=== PATIENT | male | born 1970 | race Caucasian/White ===

== ENCOUNTER 2023-06-15 08:30 | Outpatient (OUT) | payer OTHER, SELFPAY ==
[2023-06-15 09:05] LABS: Basophils Absolute Auto 0.1 10^3/uL (0.0-0.1); Eosinophils Absolute Auto 0.1 10^3/uL (0.0-0.7); Eosinophils Percent Auto 1.9 % (0.9-7.0); Hematocrit 42.2 % (42.0-54.0); Hemoglobin 14.2 g/dL (14.0-18.0); Immature Granulocytes Abs Auto 0.02 10^3/uL (0.00-0.03); Immature Granulocytes Pct Auto 0.4 % (0.0-0.5); Lymphocytes Absolute Auto 1.3 10^3/uL (1.2-3.8); Lymphocytes Percent Auto 25.6 % (20.5-60.0); Mean Corpuscular HGB Conc 33.6 g/dL (29.9-35.2); Mean Corpuscular Hemoglobin 28.5 pg (25.9-34.0); Mean Corpuscular Volume 84.7 fL (80.0-94.0); Mean Platelet Volume 8.9 fL (9.5-13.5); Monocytes Absolute Auto 0.5 10^3/uL (0.3-0.8); Monocytes Percent Auto 8.9 % (1.7-12.0); Neutrophils Absolute Auto 3.2 10^3/uL (1.4-6.5); Neutrophils Percent Auto 62.2 % (43.0-75.0); Platelet Count 252 10^3/uL (150-450); Red Blood Count 4.98 10^6/uL (4.70-6.10); Red Cell Distribution Width 12.4 % (11.0-15.0); White Blood Count 5.2 10^3/uL (4.0-11.0)
[2023-06-15 09:35] LABS: Alanine Aminotransferase 40 U/L (16-63); Albumin Level 3.8 g/dL (3.4-5.0); Alkaline Phosphatase 118 U/L (46-116); Anion Gap 15.3; Aspartate Amino Transferase 18 U/L (15-37); BUN Creatinine Ratio 9.3; Bilirubin Total 0.7 mg/dL (0.2-1.0); Calcium 8.7 mg/dL (8.5-10.1); Carbon Dioxide 26.8 mmol/L (21.0-32.0); Chloride 100 mmol/L (98-107); Chol HDL Ratio 5.4; Cholesterol 215 mg/dL (<=200); Estimated GFR (African America >60 (>=60); Estimated GFR (Non-African Ame 58 (>=60); Globulin 3.7 g/dL; Glucose 90 mg/dL (74-106); HDL Cholesterol 40 mg/dL (40-60); Potassium 4.1 mmol/L (3.5-5.1); Sodium 138 mmol/L (136-145); Total Protein 7.5 g/dL (6.4-8.2); Triglycerides 220 mg/dL (<=150)
--- OUTSIDE RECORDS SUMMARY | 2023-07-21 18:42 | XMS_ITS | CCD ---
Author Name Unknown Address [address] [place] [address] Organization [facility] Care Team Providers Care Senior Science Consultant Name Role Phone HOUSE, DR MURPHY Attending Unavailable HOUSE, DR MURPHY Consulting Unavailable HOUSE, DR MURPHY Primary Care Unavailable [place], DR MURPHY Admitting Unavailable Mendy Benitez Unavailable Problems Active Problems Problem Classification Problem Date Documented Da te Episodic/Chronic Other screening for suspected conditions (not mental disorders or infectious disease) (3 sources) Encounter for screening for lipoid disorders; Translations: [Encounter for screening for diseases of the blood and blood-forming organs and certain disorders involving the immune mechanism] Episodic Phlebitis; thrombophlebitis and thromboembolism (1 source) Personal history of other venous thrombosis and embolism Episodic Past or Other Problems Problem Classification Problem Date Documented Da te Episodic/Chronic Unclassified (1 source) Acute cough R05.1 Results Test Name Value Interpretation Reference Range Facil ity CBC AUTO DIFFon 05-23-2022 BASO # 0.0 103/ul Normal 0.0-0.1 [facility] Comment on above: Performed By: #### C BC #### [facility] [address] [place] [address] Dr. Shantelle Nicolas Basophils/100 WBC (Bld) 0.7 % Normal 0.2-2.0 [facility] Comment on above: Performed By: #### C BC #### [facility] [address] [place] [address] Dr. Shantelle Nicolas EO # 0.1 103/ul Normal 0.0-0.7 [facility] Comment on above: Performed By: #### C BC #### [facility] [address] [place] [address] Dr. Shantelle Nicolas Eosinophils/100 WBC (Bld) 3.3 % Normal 0.9-7.0 [facility] Comment on above: Performed By: #### C BC #### [facility] [address] [place] [address] Dr. Shantelle Nicolas Erythrocyte distribution wid th (RBC) [Ratio] 12.7 % Normal 11.0-15.0 [facility] Comment on above: Performed By: #### C BC #### [facility] [address] [place] [address] Dr. Shantelle Nicolas Hematocrit (Bld) [Volume fraction] 43.4 % Normal 4 2.0-54.0 [facility] Comment on above: Performed By: #### C BC #### [facility] [address] [place] [address] Dr. Shantelle Nicolas Hemoglobin (Bld) [Mass/Vol] 14.3 g/dL Normal 14.0-18. 0 [facility] Comment on above: Performed By: #### C BC #### [facility] [address] [place] [address] Dr. Shantelle Nicolas IG # 0.01 10e3/ul Normal 0.00-0.03 [facility] Comment on above: Performed By: #### C BC #### [facility] [address] [place] [address] Dr. Shantelle Nicolas IG % 0.2 % Normal 0.0-0.5 [facility] Comment on above: Performed By: #### C BC #### [facility] [address] [place] [address] Dr. Shantelle Nicolas LYMPH # 1.5 103/ul Normal 1.2-3.8 [facility] Comment on above: Performed By: #### C BC #### [facility] [address] [place] [address] Dr. Shantelle Nicolas Lymphocytes/100 WBC (Bld) 33.7 % Normal 20.5-60.0 [facility] Comment on above: Performed By: #### C BC #### [facility] [address] [place] [address] Dr. Shantelle Nicolas MANUAL DIFF REQ NO Normal [facility] Comment on above: Performed By: #### C BC #### [facility] [address] [place] [address] Dr. Shantelle Nicolas MCH (RBC) [Entitic mass] 28.0 pg Normal 25.9-34.0 [facility] Comment on above: Performed By: #### C BC #### [facility] [address] [place] [address] Dr. Shantelle Nicolas MCHC (RBC) [Mass/Vol] 32.9 g/dL Normal 29.9-35.2 [facility] Comment on above: Performed By: #### C BC #### [facility] [address] [place] [address] Dr. Shantelle Nicolas MCV (RBC) [Entitic vol] 85.1 fL Normal 80.0-94.0 [facility] Comment on above: Performed By: #### C BC #### [facility] [address] [place] [address] Dr. Shantelle Nicolas MONO # 0.5 103/ul Normal 0.3-0.8 [facility] Comment on above: Performed By: #### C BC #### [facility] [address] [place] [address] Dr. Shantelle Nicolas Monocytes/100 WBC (Bld) 10.9 % Normal 1.7-12.0 [facility] Comment on above: Performed By: #### C BC #### [facility] [address] [place] [address] Dr. Shantelle Nicolas NEUT # 2.2 103/ul Normal 1.4-6.5 [facility] Comment on above: Performed By: #### C BC #### [facility] [address] [place] [address] Dr. Shantelle Nicolas Neutrophils/100 WBC (Bld) 51.2 % Normal 43.0-75.0 [facility] Comment on above: Performed By: #### C BC #### [facility] [address] [place] [address] Dr. Shantelle Nicolas Platelet mean volume (Bld) [Entitic vol] 8.8 fL Critically low 9.5-13.5 [facility] Comment on above: Performed By: #### C BC #### [facility] [address] [place] [address] Dr. Shantelle Nicolas PLT 222 103/ul Normal 150-450 [facility] Comment on above: Performed By: #### C BC #### [facility] [address] [place] [address] Dr. Shantelle Nicolas RBC 5.10 106/ul Normal 4.70-6.10 [facility] Comment on above: Performed By: #### C BC #### [facility] [address] [place] [address] Dr. Shantelle Nicolas WBC 4.3 103/ul Normal 4.0-11.0 [facility] Comment on above: Performed By: #### C BC #### [facility] [address] [place] [address] Dr. Shantelle Nicolas LIPID PROFILEon 05-23-2022 CHOL-HDL RATIO NORM SEE BELOW Normal [facility] Comment on above: Result Comment: 3.3 - 4.4 LOW RISK 4.4 - 7.1 AVERAGE RISK 7.1 - 11.0 MODERATE RISK >11.0 HIGH RISK Performed By: #### L IPID, CMP #### [facility] [address] [place] [address] Dr. Shantelle Nicolas Cholesterol [Mass/Vol] 224 mg/dL Critically high <=200 [facility] Comment on above: Performed By: #### L IPID, CMP #### [facility] [address] [place] [address] Dr. Shantelle Nicolas Cholesterol in HDL [Mass/Vol] 42 mg/dL Normal 40-60 [facility] Comment on above: Performed By: #### L IPID, CMP #### [facility] [address] [place] [address] Dr. Shantelle Nicolas Cholesterol in LDL [Mass/Vol] 149.0 mg/dL Normal [facility] Comment on above: Performed By: #### L IPID, CMP #### [facility] [address] [address] [address] Shantelle Nicolas Cholesterol.total/Cholestero l in HDL [Mass ratio] 5.3 {ratio} Normal [facility] Comment on above: Performed By: #### L IPID, CMP #### [facility] [address] [address] [address] Shantelle Nicolas HDL NORMAL > or = 60 mg/dl - LO W CARDIOVASCULAR RISK <40 mg/dl - HIGH CARDIOVASCULAR RISK Normal [facility] Comment on above: Performed By: #### L IPID, CMP #### [facility] [address] [address] [address] Shantelle Nicolas LDL CALC NORMAL SEE BELOW Normal The [facility] Comment on above: Result Comment: <100 mg/dl OPTIMAL 100 - 129 mg/dl NEAR OR ABOVE OPTIMAL 130 - 159 mg/dl BORDERLINE HIGH 160 - 189 mg/dl HIGH >190 mg/dl VERY HIGH Performed By: #### L IPID, CMP #### [facility] [address] [place] [address] Dr. Shantelle Nicolas Triglyceride [Mass/Vol] 165 mg/dL Critically high <=150 [facility] Comment on above: Performed By: #### L IPID, CMP #### [facility] [address] [place] [address] Dr. Shantelle Nicolas VLDL CALC 33.0 mg/dL Normal [facility] Comment on above: Performed By: #### L IPID, CMP #### [facility] [address] [address] [address] Shantelle Nicolas PROF 14(COMP METB)on 022 Albumin [Mass/Vol] 4.2 g/dL Normal 3.4-5.0 [facility] Comment on above: Performed By: #### L IPID, CMP #### [facility] [address] [place] [address] Dr. Shantelle Nicolas Albumin/Globulin [Mass ratio] 1.2 {ratio} Normal [facility] Comment on above: Performed By: #### L IPID, CMP #### [facility] [address] [address] [address] Shantelle Nicolas ALP [Catalytic activity/Vol] 97 U/L Normal 46-116 [facility] Comment on above: Performed By: #### L IPID, CMP #### [facility] [address] [address] [address] Shantelle Nicolas ALT [Catalytic activity/Vol] 34 U/L Normal 16-63 [facility] Comment on above: Performed By: #### L IPID, CMP #### [facility] [address] [address] [address] Shantelle Nicolas Anion gap [Moles/Vol] 10.6 mmol/L Normal [facility] Comment on above: Performed By: #### L IPID, CMP #### [facility] [address] [address] [address] Shantelle Nicolas AST [Catalytic activity/Vol] 16 U/L Normal 15-37 [facility] Comment on above: Performed By: #### L IPID, CMP #### [facility] [address] [address] [address] Shantelle Nicolas Bilirubin [Mass/Vol] 0.9 mg/dL Normal 0.2-1.0 [facility] Comment on above: Performed By: #### L IPID, CMP #### [facility] [address] [address] [address] Shantelle Nicolas Calcium [Mass/Vol] 9.2 mg/dL Normal 8.5-10.1 [facility] Comment on above: Performed By: #### L IPID, CMP #### [facility] [address] [address] [address] Shantelle Nicolas Chloride [Moles/Vol] 102 mmol/L Normal 98-107 [facility] Comment on above: Performed By: #### L IPID, CMP #### [facility] [address] [address] [address] Shantelle Nicolas CO2 [Moles/Vol] 30.4 mmol/L Normal 21.0-32.0 [facility] Comment on above: Performed By: #### L IPID, CMP #### [facility] [address] [address] [address] Shantelle Nicolas Creatinine [Mass/Vol] 1.17 mg/dL Normal 0.70-1.30 [facility] Comment on above: Performed By: #### L IPID, CMP #### [facility] [address] [address] [address] Shantelle Nicolas EGFR-AF CENTRAL AFRICAN >60 Normal >=60 [facility] Comment on above: Performed By: #### L IPID, CMP #### [facility] [address] [address] [address] Shantelle Nicolas EGFR-NON AF CENTRAL AFRICAN >60 Normal >=60 [facility] Comment on above: Performed By: #### L IPID, CMP #### [facility] [address] [address] [address] Shantelle Nicolas Globulin (S) [Mass/Vol] 3.5 g/dL Normal [facility] Comment on above: Performed By: #### L IPID, CMP #### [facility] [address] [address] [address] Shantelle Nicolas Glucose [Mass/Vol] 93 mg/dL Normal 74-106 [facility] Comment on above: Performed By: #### L IPID, CMP #### [facility] [address] [address] [address] Shantelle Nicolas Potassium [Moles/Vol] 4.0 mmol/L Normal 3.5-5.1 [facility] Comment on above: Performed By: #### L IPID, CMP #### [facility] [address] [address] [address] Shantelle Nicolas Protein [Mass/Vol] 7.7 g/dL Normal 6.4-8.2 [facility] Comment on above: Performed By: #### L IPID, CMP #### [facility] [address] [address] [address] Shantelle Nicolas Sodium [Moles/Vol] 139 mmol/L Normal 136-145 [facility] Comment on above: Performed By: #### L IPID, CMP #### [facility] [address] [place], [place] [address] Dr. Shantelle Nicolas Urea nitrogen [Mass/Vol] 12.0 mg/dL Normal 7.0-18.0 [facility] Comment on above: Performed By: #### L IPID, CMP #### [facility] [address] [place], [place] [address] Dr. Shantelle Nicolas Urea nitrogen/Creatinine [Mass ratio] 10.3 mg/mg Normal [facility] Comment on above: Performed By: #### L IPID, CMP #### [facility] [address] [place], [place] [address] Dr. Shantelle Nicolas Vital Signs Date Time Vital Sign Value Performing Clinician Facility 06-11-2023 08:00-0500 Body height 175.26 cm Mendy Benitez Other [facility] Other 06-11-2023 08:00-0500 Body mass index (BMI) [Ratio] 31.01 kg/m2 Mendy Benitez Other [facility] Other 06-11-2023 08:00-0500 Body weight 95.26 kg Mendy Benitez Other [facility] Other 06-11-2023 08:00-0500 Diastolic blood pressure 74 mm[Hg] Mendy Benitez Other [facility] Other 06-11-2023 08:00-0500 Systolic blood pressure 112 mm[Hg] Mendy Benitez Other [facility] Other 03-06-2023 08:00-0400 Body height 175.26 cm Mendy Benitez Other [facility] Other 03-06-2023 08:00-0400 Body mass index (BMI) [Ratio] 31.16 kg/m2 Mendy Hutsondarren Other [facility] Other 03-06-2023 08:00-0400 Body weight 95.71 kg Mendy Hidalgozayra Other [facility] Other 03-06-2023 08:00-0400 Diastolic blood pressure 70 mm[Hg] Mendy Emmanuel Other [facility] Other 03-06-2023 08:00-0400 Systolic blood pressure 108 mm[Hg] Mendy Hutsondarren Other [facility] Other Encounters Encounter Date Encounter Type Care Provider Facility Start: 07-08-2023 (Virtual OD) On-G[place] nd Virtual Visit [facility] Mendy Benitez [facility] Start: 07-08-2023 End: 07-08-2023 ambulatory Mendy Emmanuel Other [facility] Other Start: 06-16-2023 End: 06-16-2023 ambulatory Mendy Hutsondarren Other [facility] Other Start: 06-16-2023 Telephone encounter Mendy Kraig her [facility] Start: 06-11-2023 End: 06-11-2023 ambulatory Mendy Emmanuel Other [facility] Other Start: 06-11-2023 Encounter for genera l adult medical examination without abnormal findings Mendy Benitez [facility] Start: 06-11-2023 Periodic preventive med est patient 40-64yrs Mendy Benitez [facility] Start: 03-06-2023 End: 03-06-2023 ambulatory Mendy Benitez Other [facility] Other Start: 03-06-2023 Office outpatient ne w 20 minutes Mendy Benitez [facility] Start: 05-28-2022 Encounter for genera l adult medical examination without abnormal findings DR KATHERINE EVLA [facility] Start: 05-23-2022 End: 05-24-[address] KATHERINE VELA Facility:[facility] Start: 05-23-2022 End: 05-24-2022 Encounter for general adult medical examination without abnormal findings DR KATHERINE VELA Facility:[facility] Procedures Date Procedure Procedure Detail Performing Clinician Start: 05-23-[address] REECE VELA Comment on above: Performed By: #### P SAD #### [facility] [address] [place] [address] Dr. Shantelle Nicolas Payers Date Payer Category Payer Unknown [id number] 1960 Unknown [id number] Unknown [id number] Social History Date Type Detail Facility Sex Assigned At [facility] Other Evaluation note 07-08-2023 Note Date & Type Note Facility 07-08-2023 Evaluation note Encounter Date Diagnosis Assessment Notes Jul, Acute cough (ICD-10 - R05.1) Discussed symptoms and pt to test for COVID and call with the results. Discussed diagnosis with patient. Discussed with patient that symptoms are most likely viral at this time. No ATB needed at this time. OTC Ibuprofen/Tylenol PRN fever or general discomfort. OTC sore throat sprays or throat lozenges PRN. Notify office should symptoms persist and not improve. Discussed warning s/s with patient. If patient experiences any warning s/s, patient is immediately to go to the ER. Patient verbalizes understanding and agrees to treatment plan. [facility] Other Evaluation note 06-11-2023 Note Date & Type Note Facility 06-11-2023 Evaluation note Encounter Date Diagnosis Assessment Notes Jun, Wellness examination (ICD-10 - Z00.00) Personalized health advice was given to the beneficiary including a written plan for screenings discussed and provided. Advanced care planning reviewed and/or information given as requested. Additional counseling was provided here today in regards to general topics regarding health education were discussed in detail. All preventative issues were discussed including remaining a nonsmoker, colorectal screening, the importance of proper sleep for brain health maintenance, maintaining a heart-healthy balanced diet, recognizing and addressing signs of anxiety and depression, maintaining positive relationships with family and friends. Jun, Screening for lipid disorders (ICD-10 - Z13.220) will call lab and diagnostic results and recommendations Jun, Screening for deficiency anemia (ICD-10 - Z13.0) Jun, Screening for metabolic disorder (ICD-10 - Z13.228) [facility] Other Evaluation note 03-06-2023 Note Date & Type Note Facility 03-06-2023 Evaluation note Encounter Date Diagnosis Assessment Notes Mar, History of blood clots (ICD-10 - Z86.718) right lower extremity Reports a history of blood clot due to traumatic injury of right leg. Denies any edema, calf pain. [facility] Other Evaluation note Note Date & Type Note Facility Evaluation note No Information [facility] Other History general Narrative - Reported Note Date & Type Note Facility History general Narrative - Reported Type Medical History Asthma Medical History DVT- 2018 Surgical History PE tubes [facility] Other Summary Purpose Family History No Family History Records Found Advance Directives No Advanced Directives Records Found Additional Source Comments (unrecognized sect ion and content) No Status Records Found INFORMATION SOURCE (unrecogn ized section and content) DATE CREATED AUTHOR 05/29/2022 [facility] REASON FOR VISIT (unrecogniz ed section and content) [facility] [phone] FOR RECORDS PERTAINING TO PATIENTS WHO ARE OR HAVE BEEN ENROLLED IN A CHEMICAL DEPENDENCY/SUBSTANCEABUSE PROGRAM, SOME INFORMATION MAY BE OMITTED. This clinical summary was aggregated from multiple sources. Caution should be exercised in using it in the provision of clinical care. This summary normalizes information from multiple sources, and as a consequence, information in this document may materially change the coding, format and clinical context of patient data. In addition, data may be omitted in some cases. CLINICAL DECISIONS SHOULD BE BASED ON THE PRIMARY CLINICAL RECORDS. [facility]. provides no warranty or guarantee of the accuracy or completeness of information in this document.
== END 2023-06-15 08:31 | disposition home or self-care (01) ==
PROVIDERS: PCP Nurse Practitioner Family; Visit Provider Nurse Practitioner Family
DX: Z00.00 Encounter for general adult medical examination without abnormal findings (principal); Z13.220 Encounter for screening for lipoid disorders; Z13.0 Encounter for screening for diseases of the blood and blood-forming organs and certain disorders involving the immune mechanism; Z13.228 Encounter for screening for other metabolic disorders
CPT/HCPCS: 36415; 80053; 80061; 85025

== ENCOUNTER 2023-10-23 09:19 | Outpatient (OUT) | payer OTHER, SELFPAY ==
--- OUTSIDE RECORDS SUMMARY | 2023-10-23 09:25 | XMS_ITS | CCD ---
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 Name Role Phone HOUSE, DR MURPHY Attending Unavailable HOUSE, DR MURPHY Consulting Unavailable HOUSE, DR MURPHY Primary Care Unavailable [place], DR MURPHY Admitting Unavailable Emmanuel Mendy Unavailable [phone] Problems Active Problems Problem Classification Problem Date [...] Problem Date Documented Da te Episodic/Chronic Unclassified (2 sources) Acute cough R05.1 Results Test Name Value Interpretation Reference Range Facil ity CBC AUTO DIFFon 05-23-2022 BASO # 0.0 103/ul Normal 0.0-0.1 [facility] [place] Comment on above: Performed By: #### C BC #### [facility] [address] [place] [address] Dr. Shantelle Nicolas Basophils/100 WBC (Bld) 0.7 % Normal 0.2-2.0 [facility] [place] Comment on above: Performed By: #### C BC #### [facility] [address] [address] [address] Shantelle Nicolas EO # 0.1 103/ul Normal 0.0-0.7 [facility] Comment on above: Performed By: #### C BC #### [facility] [address] [address] [address] Shantelle Nicolas Eosinophils/100 WBC (Bld) 3.3 % Normal 0.9-7.0 [facility] [place] Comment on above: Performed By: #### C BC #### [facility] [address] [place] [address] Dr. Shantelle Nicolas Erythrocyte distribution width (RBC) [Ratio] 12.7 % Normal 11.0-15.0 [facility] [place] Comment on above: Performed By: #### C BC #### [facility] [address] [place] [address] Dr. Shantelle Nicolas Hematocrit (Bld) [Volume fraction] 43.4 % Normal 42.0-54.0 [facility] [place] Comment on above: Performed By: #### C BC #### [facility] [address] [place] [address] Dr. Shantelle Nicolas Hemoglobin (Bld) [Mass/Vol] 14.3 g/dL Normal 14.0-18.0 [facility] [place] Comment on above: Performed By: #### C BC #### [facility] [address] [place] [address] Dr. Shantelle Nicolas IG # 0.01 10e3/ul Normal 0.00-0.03 [facility] [place] Comment on above: Performed By: #### C BC #### [facility] [address] [place] [address] Dr. Shantelle Nicolas IG % 0.2 % Normal 0.0-0.5 [facility] [place] Comment on above: Performed By: #### C BC #### [facility] [address] [place] [address] Dr. Shantelle Nicolas LYMPH # 1.5 103/ul Normal 1.2-3.8 [facility] [place] Comment on above: Performed By: #### C BC #### [facility] [address] [place] [address] Dr. Shantelle Nicolas Lymphocytes/100 WBC (Bld) 33.7 % Normal 20.5-60.0 [facility] [place] Comment on above: Performed By: #### C BC #### [facility] [address] [place] [address] Dr. Shantelle Nicolas MANUAL DIFF REQ NO Normal [facility] Comment on above: Performed By: #### C BC #### [facility] [address] [address] [address] Shantelle Nicolas MCH (RBC) [Entitic mass] 28.0 pg Normal 25.9-34.0 [facility] Comment on above: Performed By: #### C BC #### [facility] [address] [place] [address] Dr. Shantelle Nicolas MCHC (RBC) [Mass/Vol] 32.9 g/dL Normal 29.9-35.2 [facility] Comment on above: Performed By: #### C BC #### [facility] [address] [place] [address] Dr. Shantelle Nicolas MCV (RBC) [Entitic vol] 85.1 fL Normal 80.0-94.0 [facility] Comment on above: Performed By: #### C BC #### [facility] [address] [place] [address] Dr. Shantelle Nicolas MONO # 0.5 103/ul Normal 0.3-0.8 [facility] Comment on above: Performed By: #### C BC #### [facility] [address] [place] [address] Dr. Shantelle Nicolas Monocytes/100 WBC (Bld) 10.9 % Normal 1.7-12.0 [facility] [place] Comment on above: Performed By: #### C BC #### [facility] [address] [place] [address] Dr. Shantelle Nicolas NEUT # 2.2 103/ul Normal 1.4-6.5 [facility] Comment on above: Performed By: #### C BC #### [facility] [address] [place] [address] Dr. Shantelle Nicolas Neutrophils/100 WBC (Bld) 51.2 % Normal 43.0-75.0 [facility] Comment on above: Performed By: #### C BC #### [facility] [address] [place] [address] Dr. Shantelle Nicolas Platelet mean volume (Bld) [Entitic vol] 8.8 fL Critically low 9.5-13.5 [facility] Comment on above: Performed By: #### C BC #### [facility] [address] [address] [address] Shantelle Nicolas PLT 222 103/ul Normal 150-450 [facility] [place] Comment on above: Performed By: #### C BC #### [facility] [address] [address] [address] Shantelle Nicolas RBC 5.10 106/ul Normal 4.70-6.10 [facility] [place] Comment on above: Performed By: #### C BC #### [facility] [address] [address] [address] Shantelle Nicolas WBC 4.3 103/ul Normal 4.0-11.0 [facility] [place] Comment on above: Performed By: #### C BC #### [facility] [address] [address] [address] Shantelle Nicolas LIPID PROFILEon 05-23-2022 CHOL-HDL RATIO NORM SEE BELOW Normal [facility] Comment on above: Result Comment: 3.3 - 4.4 LOW RISK 4.4 - 7.1 AVERAGE RISK 7.1 - 11.0 MODERATE RISK >11.0 HIGH RISK Performed By: #### L IPID, CMP #### [facility] [address] [place] [address] Dr. Shantelle Nicolas Cholesterol [Mass/Vol] 224 mg/dL Critically high <=200 [facility] [place] Comment on above: Performed By: #### L IPID, CMP #### [facility] [address] [address] [address] Shantelle Nicolas Cholesterol in HDL [Mass/Vol] 42 mg/dL Normal 40-60 [facility] [place] Comment on above: Performed By: #### L IPID, CMP #### [facility] [address] [address] [address] Shantelle Nicolas Cholesterol in LDL [Mass/Vol] 149.0 mg/dL Normal [facility] [place] Comment on above: Performed By: #### L IPID, CMP #### [facility] [address] [place] [address] Dr. Shantelle Nicolas Cholesterol.total/C holesterol in HDL [Mass ratio] 5.3 {ratio} Normal [facility] [place] Comment on above: Performed By: #### L IPID, CMP #### [facility] [address] [address] [address] Shantelle Nicolas HDL NORMAL > or = 60 mg/dl - LO W CARDIOVASCULAR RISK <40 mg/dl - HIGH CARDIOVASCULAR RISK Normal [facility] [place] Comment on above: Performed By: #### L IPID, CMP #### [facility] [address] [address] [address] Shantelle Nicolas LDL CALC NORMAL SEE BELOW Normal [facility] Comment on above: Result Comment: <100 mg/dl OPTIMAL 100 - 129 mg/dl NEAR OR ABOVE OPTIMAL 130 - 159 mg/dl BORDERLINE HIGH 160 - 189 mg/dl HIGH >190 mg/dl VERY HIGH Performed By: #### L IPID, CMP #### [facility] [address] [address] [address] Shantelle Nicolas Triglyceride [Mass/Vol] 165 mg/dL Critically high <=150 [facility] [place] Comment on above: Performed By: #### L IPID, CMP #### [facility] [address] [address] [address] Shantelle Nicolas VLDL CALC 33.0 mg/dL Normal [facility] [place] Comment on above: Performed By: #### L IPID, CMP #### [facility] [address] [address] [address] Shantelle Nicolas PROF 14(COMP METB)on 05-23- 022 Albumin [Mass/Vol] 4.2 g/dL Normal 3.4-5.0 [facility] Comment on above: Performed By: #### L IPID, CMP #### [facility] [address] [address] [address] Shantelle Nicolas Albumin/Globulin [Mass ratio] 1.2 {ratio} Normal [facility] [place] Comment on above: Performed By: #### L IPID, CMP #### [facility] [address] [address] [address] Shantelle Nicolas ALP [Catalytic activity/Vol] 97 U/L Normal 46-116 [facility] [place] Comment on above: Performed By: #### L IPID, CMP #### [facility] [address] [address] [address] Shantelle Nicolas ALT [Catalytic activity/Vol] 34 U/L Normal 16-63 [facility] [place] Comment on above: Performed By: #### L IPID, CMP #### [facility] [address] [address] [address] Shantelle Nicolas Anion gap [Moles/Vol] 10.6 mmol/L Normal [facility] [place] Comment on above: Performed By: #### L IPID, CMP #### [facility] [address] [address] [address] Shantelle Nicolas AST [Catalytic activity/Vol] 16 U/L Normal 15-37 [facility] [place] Comment on above: Performed By: #### L IPID, CMP #### [facility] [address] [place] [address] Dr. Shantelle Nicolas Bilirubin [Mass/Vol] 0.9 mg/dL Normal 0.2-1.0 [facility] [place] Comment on above: Performed By: #### L IPID, CMP #### [facility] [address] [place] [address] Dr. Shantelle Nicolas Calcium [Mass/Vol] 9.2 mg/dL Normal 8.5-10.1 [facility] Comment on above: Performed By: #### L IPID, CMP #### [facility] [address] [place] [address] Dr. Shantelle Nicolas Chloride [Moles/Vol] 102 mmol/L Normal 98-107 [facility] Comment on above: Performed By: #### L IPID, CMP #### [facility] [address] [address] [address] Shantelle Nicolas CO2 [Moles/Vol] 30.4 mmol/L Normal 21.0-32.0 [facility] Comment on above: Performed By: #### L IPID, CMP #### [facility] [address] [address] [address] Shantelle Nicolas Creatinine [Mass/Vol] 1.17 mg/dL Normal 0.70-1.30 [facility] [place] Comment on above: Performed By: #### L IPID, CMP #### [facility] [address] [address] [address] Shantelle Nicolas EGFR-AF CYMRAES >60 Normal >=60 [facility] Comment on above: Performed By: #### L IPID, CMP #### [facility] [address] [address] [address] Shantelle Nicolas EGFR-NON AF CYMRAES >60 Normal >=60 [facility] [place] Comment on above: Performed By: #### L IPID, CMP #### [facility] [address] [address] [address] Shantelle Nicolas Globulin (S) [Mass/Vol] 3.5 g/dL Normal [facility] [place] Comment on above: Performed By: #### L IPID, CMP #### [facility] [address] [address] [address] Shantelle Nicolas Glucose [Mass/Vol] 93 mg/dL Normal 74-106 [facility] Comment on above: Performed By: #### L IPID, CMP #### [facility] [address] [address] [address] Shantelle Nicolas Potassium [Moles/Vol] 4.0 mmol/L Normal 3.5-5.1 [facility] [place] Comment on above: Performed By: #### L IPID, CMP #### [facility] [address] [address] [address] Shantelle Nicolas Protein [Mass/Vol] 7.7 g/dL Normal 6.4-8.2 [facility] Comment on above: Performed By: #### L IPID, CMP #### [facility] [address] [address] [address] Shantelle Nicolas Sodium [Moles/Vol] 139 mmol/L Normal 136-145 [facility] Comment on above: Performed By: #### L IPID, CMP #### [facility] [address] [address] [address] Shantelle Nicolas Urea nitrogen [Mass/Vol] 12.0 mg/dL Normal 7.0-18.0 [facility] [place] Comment on above: Performed By: #### L IPID, CMP #### [facility] [address] [address] [address] Shantelle Nicolas Urea nitrogen/Creatinine [Mass ratio] 10.3 mg/mg Normal [facility] Comment on above: Performed By: #### L IPID, CMP #### [facility] [address] [address] [address] Shanetlle Nicolas Vital Signs Date Time Vital Sign Value Performing Clinician Facility 06-11-2023 08:00-0500 Body height 175.26 cm Mendy Benitez Other [facility] Other 06-11-2023 08:00-0500 Body mass index (BMI) [Ratio] 31.01 kg/m2 Mendy Benitez Other [facility] Other 06-11-2023 08:00-0500 Body weight 95.26 kg Mendy Benitez Other [facility] Other 06-11-2023 08:00-0500 Diastolic blood pressure 74 mm[Hg] Mendy Benitez Other [facility] Other 06-11-2023 08:00-0500 Systolic blood pressure 112 mm[Hg] Mendy Benitez Other [facility] Other 03-06-2023 08:00-0400 Body height 175.26 cm Mendy Benitez Other [facility] Other 03-06-2023 08:00-0400 Body mass index (BMI) [Ratio] 31.16 kg/m2 Mendy Benitez Other [facility] Other 03-06-2023 08:00-0400 Body weight 95.71 kg Mendy Benitez Other [facility] Other 03-06-2023 08:00-0400 Diastolic blood pressure 70 mm[Hg] Mendy Emmanuel Other [facility] Other 03-06-2023 08:00-0400 Systolic blood pressure 108 mm[Hg] Mendy Emmanuel Other [facility] Other Encounters Encounter Date Encounter Type Care Provider Facility Start: 07-08-2023 (Virtual OD) On-[place] nd Virtual Visit [facility] Mendy Benitez [facility] Start: 07-08-2023 End: 07-08-2023 ambulatory Mendy Benitez Other [facility] Other Start: 06-16-2023 End: 06-16-2023 ambulatory Mendy Benitez Other [facility] Other Start: 06-16-2023 Telephone encounter Mendy Kraig modi [facility] Start: 06-11-2023 End: 06-11-2023 ambulatory Mendy Benitez Other [facility] Other Start: 06-11-2023 Encounter for genera l adult medical examination without abnormal findings Mendy Benitez [facility] Start: 06-11-2023 Periodic preventive med est patient 40-64yrs Mendy Benitez [facility] Start: 03-06-2023 End: 03-06-2023 ambulatory Mendy Benitez Other [facility] Other Start: 03-06-2023 Office outpatient ne w 20 minutes Mendy Benitez [facility] Start: 05-28-2022 Encounter for genera l adult medical examination without abnormal findings DR KATHERINE VELA [facility] Start: 05-23-2022 End: 05-24-[address] KATHERINE VELA Facility:[facility] Start: 05-23-2022 End: 05-24-2022 Encounter for general adult medical examination without abnormal findings DR KATHERINE VELA Facility:[facility] Procedures Date Procedure Procedure Detail Performing Clinician Start: 05-23-[address] REECE VELA Comment on above: Performed By: #### P SAD #### [facility] [address] [address] [address] Shantelle Nicolas Payers Date Payer Category Payer Unknown [id number] 1960 Unknown [id number] Unknown [id number] Social History Date Type Detail Facility Sex Assigned At [facility] Other Evaluation note 07-08-2023 Note Date & [...] verbalizes understanding and agrees to treatment plan. [facility] Other Evaluation note 07-08-2023 Note Date & [...] verbalizes understanding and agrees to treatment plan. Jul, Other The patient was seen per telephonic virtual visit through [email or web address] Platform and my location (provider) is in the office setting. The specifics of telephonic visit were discussed with patient. This call is considered a telephonic visit, which is to help assess current healthcare needs and to determine the appropriate care patient may require. This visit is a billable service through patient insurance [employer]. Patient is in agreement to have their insurance billed for this telephonic visit and consents to telephonic visit. The staff involved in visit was myself, Mendy Benitez DNP, [employer], [employer] CLAIM EXAMINER (provider). Time spent with patient for the telephonic visit was approximately 10 minutes. [facility] Other Evaluation note 06-11-2023 Note Date & [...] Screening for metabolic disorder (ICD-10 - Z13.228) [facility] Other Evaluation note 03-06-2023 Note Date & Type Note Facility 03-06-2023 Evaluation note Encounter Date Diagnosis Assessment Notes Mar, History of blood clots (ICD-10 - Z86.718) right lower extremity Reports a history of blood clot due to traumatic injury of right leg. Denies any edema, calf pain. [facility] Other Evaluation note Note Date & Type Note Facility Evaluation note No Information [employer] Other History general Narrative - Reported Note Date & Type Note Facility History general Narrative - Reported Type Medical History Asthma Medical History DVT- 2018 Surgical History PE tubes [facility] Other Summary Purpose Family History No Family History Records Found Advance Directives No Advanced Directives Records Found Additional Source Comments (unrecognized sect ion and content) No Status Records Found INFORMATION SOURCE (unrecogn ized section and content) DATE CREATED AUTHOR 05/29/2022 The Suzanna Bryan bonner REASON FOR VISIT (unrecogniz ed section and content) EstablishBiometric Screening lab resultsJuaquin, [facility] [phone], [facility]- [phone] FOR RECORDS PERTAINING TO PATIENTS WHO ARE [...] BE BASED ON THE PRIMARY CLINICAL RECORDS. [facility]. provides no warranty or guarantee of the accuracy or completeness of information in this document.
[2023-10-24 08:11] LABS: HCV Antibody Non Reactive (Non Reactive); Hep B Surface Ab Non Reactive (.)
== END 2023-10-23 09:20 | disposition home or self-care (01) ==
LOC: LAB 09:22
PROVIDERS: PCP Nurse Practitioner Family
DX: L43.8 Other lichen planus (principal); R20.8 Other disturbances of skin sensation
CPT/HCPCS: 36415; 86706; 86803

== ENCOUNTER 2024-05-19 08:01 | Outpatient (OUT) | payer OTHER, SELFPAY ==
--- OUTSIDE RECORDS SUMMARY | 2024-05-19 08:04 | XMS_ITS | CCD ---
Author Organization [facility] Care Team Providers Care Knockup Worker Name Role Phone HOUSE, DR MURPHY Attending Unavailable HOUSE, DR MURPHY Consulting Unavailable HOUSE, DR MURPHY Primary Care Unavailable [place], DR MURPHY Admitting Unavailable EmmanuelMendy Unavailable Problems Active Problems Problem Classification Problem Date Documented Da te Episodic/Chronic Asthma (1 source) Asthma; Translations: [Unspecified asthma, uncomplicated] 05-16-2024 Chronic Other screening for suspected conditions (not mental disorders or infectious disease) (5 sources) Encounter for screening for lipoid disorders; [...] 05-23-2022 BASO # 0.0 103/ul Normal 0.0-0.1 [facility] Comment on above: Performed By: #### C BC #### [facility] [address] [place] [address] Dr. Shantelle Nicolas Basophils/100 WBC (Bld) 0.7 % Normal 0.2-2.0 [facility] Comment on above: Performed By: #### C BC #### [facility] [address] [address] [address] Shantelle Nicolas EO # 0.1 103/ul Normal 0.0-0.7 [facility] Comment on above: Performed By: #### C BC #### [facility] [address] [place] [address] Dr. Shantelle Nicolas Eosinophils/100 WBC (Bld) 3.3 % Normal 0.9-7.0 [facility] Comment on above: Performed By: #### C BC #### [facility] [address] [place] [address] Dr. Shantelle Nicolas Erythrocyte distribution width (RBC) [Ratio] 12.7 % Normal 11.0-15.0 [facility] Comment on above: Performed By: #### C BC #### [facility] [address] [place] [address] Dr. Shantelle Nicolas Hematocrit (Bld) [Volume fraction] 43.4 % Normal 42.0-54.0 [facility] Comment on above: Performed By: #### C BC #### [facility] [address] [place] [address] Dr. Shantelle Nicolas Hemoglobin (Bld) [Mass/Vol] 14.3 g/dL Normal 14.0-18.0 [facility] Comment on above: Performed By: #### C BC #### [facility] [address] [place] [address] Dr. Shantelle Nicolas IG # 0.01 10e3/ul Normal 0.00-0.03 [facility] Comment on above: Performed By: #### C BC #### [facility] [address] [place] [address] Dr. Shantelle Nicolas IG % 0.2 % Normal 0.0-0.5 [facility] Comment on above: Performed By: #### C BC #### [facility] [address] [place] [address] Dr. Shantelle Nicolas LYMPH # 1.5 103/ul Normal 1.2-3.8 [facility] Comment on above: Performed By: #### C BC #### [facility] [address] [place] [address] Dr. Shantelle Nicolas Lymphocytes/100 WBC (Bld) 33.7 % Normal 20.5-60.0 [facility] Comment on above: Performed By: #### C BC #### [facility] [address] [place] [address] Dr. Shantelle Nicolas MANUAL DIFF REQ NO Normal [facility] Comment on above: Performed By: #### C BC #### [facility] [address] [address] [address] Shantelle Nicolas MCH (RBC) [Entitic mass] 28.0 pg Normal 25.9-34.0 [facility] Comment on above: Performed By: #### C BC #### [facility] [address] [address] [address] Shantelle Nicolas MCHC (RBC) [Mass/Vol] 32.9 g/dL Normal 29.9-35.2 [facility] Comment on above: Performed By: #### C BC #### [facility] [address] [place] [address] Dr. Shantelle Nicolas MCV (RBC) [Entitic vol] 85.1 fL Normal 80.0-94.0 [facility] Comment on above: Performed By: #### C BC #### [facility] [address] [place] [address] Dr. Shantelle Nicolas MONO # 0.5 103/ul Normal 0.3-0.8 [facility] Comment on above: Performed By: #### C BC #### [facility] [address] [place] [address] Dr. Shantelle Nicolas Monocytes/100 WBC (Bld) 10.9 % Normal 1.7-12.0 [facility] Comment on above: Performed By: #### C BC #### [facility] [address] [place] [address] Dr. Shantelle Nicolas NEUT # 2.2 103/ul Normal 1.4-6.5 [facility] Comment on above: Performed By: #### C BC #### [facility] [address] [place] [address] Dr. Shantelle Nicolas Neutrophils/100 WBC (Bld) 51.2 % Normal 43.0-75.0 [facility] Comment on above: Performed By: #### C BC #### [facility] [address] [place] [address] Dr. Shantelle Nicolas Platelet mean volume (Bld) [Entitic vol] 8.8 fL Critically low 9.5-13.5 [facility] Comment on above: Performed By: #### C BC #### [facility] [address] [address] [address] Shantelle Nicolas PLT 222 103/ul Normal 150-450 [facility] Comment on above: Performed By: #### C BC #### [facility] [address] [place] [address] Dr. Shantelle Nicolas RBC 5.10 106/ul Normal 4.70-6.10 [facility] Comment on above: Performed By: #### C BC #### [facility] [address] [place] [address] Dr. Shantelle Nicolas WBC 4.3 103/ul Normal 4.0-11.0 [facility] Comment on above: Performed By: #### C BC #### [facility] [address] [place] [address] Dr. Shantelle Nicolas LIPID PROFILEon 05-23-2022 CHOL-HDL RATIO NORM SEE BELOW Normal [facility] Comment on above: Result Comment: 3.3 - 4.4 LOW RISK 4.4 - 7.1 AVERAGE RISK 7.1 - 11.0 MODERATE RISK >11.0 HIGH RISK Performed By: #### L IPID, CMP #### [facility] [address] [place] [address] Dr. Shantelle Nicolas Cholesterol [Mass/Vol] 224 mg/dL Critically high <=200 [facility] Comment on above: Performed By: #### L IPID, CMP #### [facility] [address] [place] [address] Dr. Shantelle Nicolas Cholesterol in HDL [Mass/Vol] 42 mg/dL Normal 40-60 [facility] Comment on above: Performed By: #### L IPID, CMP #### [facility] [address] [place] [address] Dr. Shantelle Nicolas Cholesterol in LDL [Mass/Vol] 149.0 mg/dL Normal [facility] Comment on above: Performed By: #### L IPID, CMP #### [facility] [address] [place] [address] Dr. Shantelle Nicolas Cholesterol.total/C holesterol in HDL [Mass ratio] 5.3 {ratio} Normal [facility] Comment on above: Performed By: #### L IPID, CMP #### [facility] [address] [address] [address] Shantelle Nicolas HDL NORMAL > or = 60 mg/dl - LO W CARDIOVASCULAR RISK <40 mg/dl - HIGH CARDIOVASCULAR RISK Normal [facility] Comment on above: Performed By: #### L IPID, CMP #### [facility] [address] [address] [address] Shantelle Nicolas LDL CALC NORMAL SEE BELOW Normal [facility] Comment on above: Result Comment: <100 mg/dl OPTIMAL 100 - 129 mg/dl NEAR OR ABOVE OPTIMAL 130 - 159 mg/dl BORDERLINE HIGH 160 - 189 mg/dl HIGH >190 mg/dl VERY HIGH Performed By: #### L IPID, CMP #### [facility] [address] [address] [address] Shantelle Nicolas Triglyceride [Mass/Vol] 165 mg/dL Critically high <=150 [facility] Comment on above: Performed By: #### L IPID, CMP #### [facility] [address] [address] [address] Shantelle Nicolas VLDL CALC 33.0 mg/dL Normal [facility] Comment on above: Performed By: #### L IPID, CMP #### [facility] [address] [address] [address] Shantelle Nicolas PROF 14(COMP METB)on 022 Albumin [Mass/Vol] 4.2 g/dL Normal 3.4-5.0 [facility] Comment on above: Performed By: #### L IPID, CMP #### [facility] [address] [address] [address] Shantelle Nicolas Albumin/Globulin [Mass ratio] 1.2 {ratio} Normal [facility] Comment on above: Performed By: #### L IPID, CMP #### [facility] [address] [address] [address] Shantelle Nicolas ALP [Catalytic activity/Vol] 97 U/L Normal 46-116 [facility] Comment on above: Performed By: #### L IPID, CMP #### [facility] [address] [address] [address] Shantelle Nicolas ALT [Catalytic activity/Vol] 34 U/L Normal 16-63 [facility] Comment on above: Performed By: #### L IPID, CMP #### [facility] [address] [address] [address] Shantelle Nicolas Anion gap [Moles/Vol] 10.6 mmol/L Normal [facility] Comment on above: Performed By: #### L IPID, CMP #### [facility] [address] [address] [address] Shantelle Nicolas AST [Catalytic activity/Vol] 16 U/L Normal 15-37 [facility] Comment on above: Performed By: #### L IPID, CMP #### [facility] [address] [address] [address] Shantelle Nicolas Bilirubin [Mass/Vol] 0.9 mg/dL Normal 0.2-1.0 [facility] Comment on above: Performed By: #### L IPID, CMP #### [facility] [address] [address] [address] Shantelle Nicolas Calcium [Mass/Vol] 9.2 mg/dL Normal 8.5-10.1 [facility] Comment on above: Performed By: #### L IPID, CMP #### [facility] [address] [address] [address] Shantelle Nicolas Chloride [Moles/Vol] 102 mmol/L Normal 98-107 [facility] Comment on above: Performed By: #### L IPID, CMP #### [facility] [address] [address] [address] Shantelle Nicolas CO2 [Moles/Vol] 30.4 mmol/L Normal 21.0-32.0 [facility] Comment on above: Performed By: #### L IPID, CMP #### [facility] [address] [address] [address] Shantelle Nicolas Creatinine [Mass/Vol] 1.17 mg/dL Normal 0.70-1.30 [facility] Comment on above: Performed By: #### L IPID, CMP #### [facility] [address] [place] [address] Dr. Shantelle Nicolas EGFR-AF ITALIAN >60 Normal >=60 [facility] Comment on above: Performed By: #### L IPID, CMP #### [facility] [address] [address] [address] Shantelle Nicolas EGFR-NON AF ITALIAN >60 Normal >=60 [facility] Comment on above: Performed By: #### L IPID, CMP #### [facility] [address] [address] [address] Shantelle Nicolsa Globulin (S) [Mass/Vol] 3.5 g/dL Normal [facility] Comment on above: Performed By: #### L IPID, CMP #### [facility] [address] [place] [address] Dr. Shantelle Nicolas Glucose [Mass/Vol] 93 mg/dL Normal 74-106 [facility] Comment on above: Performed By: #### L IPID, CMP #### [facility] [address] [place] [address] Dr. Shantelle Nicolas Potassium [Moles/Vol] 4.0 mmol/L Normal 3.5-5.1 [facility] Comment on above: Performed By: #### L IPID, CMP #### [facility] [address] [place] [address] Dr. Shantelle Nicolas Protein [Mass/Vol] 7.7 g/dL Normal 6.4-8.[address] [facility] Comment on above: Performed By: #### L IPID, CMP #### [facility] [address] [address] [address] Shantelle Nicolas Sodium [Moles/Vol] 139 mmol/L Normal 136-145 [facility] Comment on above: Performed By: #### L IPID, CMP #### [facility] [address] [address] [address] Shantelle Nicolas Urea nitrogen [Mass/Vol] 12.0 mg/dL Normal 7.0-18.0 [facility] Comment on above: Performed By: #### L IPID, CMP #### [facility] [address] [address] [address] Shantelle Nicolas Urea nitrogen/Creatinine [Mass ratio] 10.3 mg/mg Normal [facility] Comment on above: Performed By: #### L IPID, CMP #### [facility] [address] [address] [address] Shantelle Nicolas Vital Signs Date Time Vital Sign Value Performing Clinician Facility 05-16-2024 08:32-0400 Body height 175.26 cm [facility] 05-16-2024 08:32-0400 Body mass index (BMI) [Ratio] 31.8 kg/m2 [facility] 05-16-2024 08:32-0400 Body temperature 97.4 [degF] [facility] 05-16-2024 08:32-0400 Body weight 97.63 kg [facility] 05-16-2024 08:32-0400 Diastolic blood pressure 88 mm[Hg] [facility] 05-16-2024 08:32-0400 Heart rate 76 /min [facility] 05-16-2024 08:32-0400 SaO2% (BldA) [Mass fraction] 96 % [facility] 05-16-2024 08:32-0400 Systolic blood pressure 118 mm[Hg] [facility] 06-11-2023 08:00-0500 Body height 175.26 cm Mendy Benitez Other [facility] Other 06-11-2023 08:00-0500 Body mass index (BMI) [Ratio] 31.01 kg/m2 Mendy Benitez Other [facility] Other 06-11-2023 08:00-0500 Body weight 95.26 kg Mendy Benitez Other [facility] Other 06-11-2023 08:00-0500 Diastolic blood pressure 74 mm[Hg] Mendy Emmanuel Other [facility] Other 06-11-2023 08:00-0500 Systolic blood pressure 112 mm[Hg] Mendy Hidalgozayra Other [facility] Other 03-06-2023 08:00-0400 Body height 175.26 cm Mendy Hutsonmykelyoanzayra Other [facility] Other 03-06-2023 08:00-0400 Body mass index (BMI) [Ratio] 31.16 kg/m2 Mendy Hutsondarren Other [facility] Other 03-06-2023 08:00-0400 Body weight 95.71 kg Mendy Hutsondarren Other [facility] Other 03-06-2023 08:00-0400 Diastolic blood pressure 70 mm[Hg] Mendy Emmanuel Other [facility] Other 03-06-2023 08:00-0400 Systolic blood pressure 108 mm[Hg] Mendy Emmanuel Other [facility] Other Encounters Encounter Date Encounter Type Care Provider Facility Start: 05-16-2024 Patient encounter status [facility] Start: 05-16-2024 End: 05-16-2024 ambulatory [facility] Work Phone: Start: 05-16-2024 End: 05-16-2024 Encounter for general adult medical examination without abnormal findings [facility] Start: 05-16-2024 End: 05-16-2024 Patient encounter procedure [facility] Physician [facility] Work Phone: Start: 07-08-2023 (Virtual OD) On-Gina nd Virtual Visit [facility] Mendy Benitez [facility] Start: 07-08-2023 End: 07-08-2023 ambulatory Mendy Benitez Other [facility] Other Start: 06-16-2023 End: 06-16-2023 ambulatory Mendy Benitez Other [facility] Other Start: 06-16-2023 Telephone encounter Mendy modi [facility] Start: 06-11-2023 End: 06-11-2023 ambulatory Mendy Benitez Other [facility] Other Start: 06-11-2023 Encounter for genera l adult medical examination without abnormal findings Mendy Hutsondarren [facility] Start: 06-11-2023 Periodic preventive med est patient 40-64yrs Mendy Hutsondarren [facility] Start: 03-06-2023 End: 03-06-2023 ambulatory Mendy Benitez Other [facility] Other Start: 03-06-2023 Office outpatient ne w 20 minutes Mendy Hutsondarren [facility] Start: 05-28-2022 Encounter for genera l adult medical examination without abnormal findings DR KATHERINE VELA [facility] Start: 05-23-2022 End: 05-24-[address] KATHERINE EVLA Facility:[facility] Start: 05-23-2022 End: 05-24-2022 Encounter for general adult medical examination without abnormal findings DR KATHERINE VELA Facility:[facility] Procedures Date Procedure Procedure Detail Performing Clinician Start: 05-23-[address] REECE VELA Comment on above: Performed By: #### P SAD #### [facility] [address] [place] [address] Dr. Shantelle Nicolas Plan of Treatment Date Care Activity Detail Author Comprehensive metabo lic 2000 panel - Serum or Plasma [facility] enter [facility] Immunizations Immunization Date Immunization Notes Care Provider Krystyna rothman 08-03-2018 tetanus toxoid, redu sridevi diphtheria toxoid, and acellular pertussis vaccine, adsorbed [facility] Payers Date Payer Category Payer Unknown [id number] 1960 Unknown [id number] Self-pay Self Pay [id number] Unknown [id number] Unknown [employer] [id number] Social History Date Type Detail Facility Sex Assigned At [facility] Other Start: 05-16-2024 Tobacco smoking stat [facility] Never smoked tobacco (finding) [facility] Start: 1970 Sex Assigned At Male [facility] Evaluation note 07-08-2023 Note Date & Type [...] verbalizes understanding and agrees to treatment plan. [facility] Other Evaluation note 07-08-2023 Note Date & [...] was seen per telephonic virtual visit through [employer] and my location (provider) is in the office setting. The specifics of telephonic visit were discussed with patient. This call is considered a telephonic visit, which is to help assess current healthcare needs and to determine the appropriate care patient may require. This visit is a billable service through patient insurance [employer]. Patient is in agreement to have their insurance billed for this telephonic visit and consents to telephonic visit. The staff involved in visit was myself, Mendy Benitez DNP, LOAN REPRESENTATIVE, AIR TRAFFIC CONTROL MANAGER (provider). Time spent with patient for the telephonic visit was approximately 10 minutes. [facility] Other Evaluation note 06-11-2023 Note Date & [...] Screening for metabolic disorder (ICD-10 - Z13.228) [facility] Other Evaluation note 03-06-2023 Note Date & Type Note Facility 03-06-2023 Evaluation note Encounter Date Diagnosis Assessment Notes Mar, History of blood clots (ICD-10 - Z86.718) right lower extremity Reports a history of blood clot due to traumatic injury of right leg. Denies any edema, calf pain. [facility] Other Evaluation note Note Date & Type Note Facility Evaluation note No Information [facility] Other Evaluation note Note Date & Type Note Facility Evaluation note Diagnosis Onset Date Screening for prostate cancer acute Wellness examination [facility] Work Phone: History general Narrative - Reported Note Date & Type Note Facility History general Narrative - Reported Type Medical History Asthma Medical History DVT- 2018 Surgical History PE tubes [facility] Other Summary Purpose Family History Relationship Condition Age at Onset Recorded Date/T stu father Heart disease Unknown Advance Directives Advance Directive Response Recorded Date/ Time Advance Directives No August 03, 2018 5:40am Chief Complaint and Reason for Visit Chief Complaint biometric screening Reason for Visit Screening for prosta te cancer Wellness examination Additional Source Comments (unrecognized sect ion and content) No Status Records Found INFORMATION SOURCE (unrecogn ized section and content) DATE CREATED AUTHOR 05/29/2022 [facility] REASON FOR VISIT (unrecogniz ed section and content) EstablishBiometric Screening lab resultsCough, Congestion- [phone], Congestion- [phone] Care Teams (unrecognized sec tion and content) Team Status: Active Member Role Status Dates Mendy Benitez APRN NP-Manuela Primary Care Provider Active Lynn Mccormick MD Specialist Active Team Status: Inactive Member Role Status Dates CARTER Rosas Primary Care Provider, Attending Provider Active Start: May 16, 2024 End: May 16, 2024 Goals (unrecognized section and content) Goals may be documented in a n alternate section FOR RECORDS PERTAINING TO PATIENTS WHO ARE [...] BE BASED ON THE PRIMARY CLINICAL RECORDS. [facility] [facility]. provides no warranty or guarantee of the accuracy or completeness of information in this document.
[2024-05-19 08:32] LABS: Basophils Percent Auto 0.9 % (0.2-2.0); Eosinophils Absolute Auto 0.1 10^3/uL (0.0-0.7); Hematocrit 44.2 % (42.0-54.0); Hemoglobin 14.8 g/dL (14.0-18.0); Immature Granulocytes Abs Auto 0.01 10^3/uL (0.00-0.03); Immature Granulocytes Pct Auto 0.2 % (0.0-0.5); Lymphocytes Absolute Auto 1.4 10^3/uL (1.2-3.8); Lymphocytes Percent Auto 29.7 % (20.5-60.0); Mean Corpuscular HGB Conc 33.5 g/dL (29.9-35.2); Mean Corpuscular Hemoglobin 28.4 pg (25.9-34.0); Mean Corpuscular Volume 84.7 fL (80.0-94.0); Mean Platelet Volume 8.9 fL (9.5-13.5); Monocytes Absolute Auto 0.6 10^3/uL (0.3-0.8); Monocytes Percent Auto 11.9 % (1.7-12.0); Neutrophils Absolute Auto 2.6 10^3/uL (1.4-6.5); Neutrophils Percent Auto 55.3 % (43.0-75.0); Platelet Count 248 10^3/uL (150-450); Red Blood Count 5.22 10^6/uL (4.70-6.10); Red Cell Distribution Width 12.4 % (11.0-15.0); White Blood Count 4.6 10^3/uL (4.0-11.0)
[2024-05-19 09:52] LABS: Alanine Aminotransferase 44 U/L (16-63); Albumin Globulin Ratio 1.1; Albumin Level 3.8 g/dL (3.4-5.0); Alkaline Phosphatase 104 U/L (46-116); Aspartate Amino Transferase 19 U/L (15-37); BUN Creatinine Ratio 8.6; Bilirubin Total 0.9 mg/dL (0.2-1.0); Calcium 9.6 mg/dL (8.5-10.1); Carbon Dioxide 27.5 mmol/L (21.0-32.0); Chloride 103 mmol/L (98-107); Chol HDL Ratio 5.2; Cholesterol 236 mg/dL (<=200); Estimated GFR (African America 58 (>=60 mL/min/1.73m^2); Estimated GFR (Non-African Ame 48 (>=60 mL/min/1.73m^2); Globulin 3.6 g/dL; Glucose 106 mg/dL (74-106); HDL Cholesterol 45 mg/dL (40-60); Potassium 4.5 mmol/L (3.5-5.1); Sodium 140 mmol/L (136-145); Total Protein 7.4 g/dL (6.4-8.2); Triglycerides 151 mg/dL (<=150); VLDL CHOLESTEROL 30.2 mg/dL
[2024-05-19 10:10] LABS: Prostate Specific Antigen Scrn 0.73 ng/mL (<=4.00)
== END 2024-05-19 08:02 | disposition home or self-care (01) ==
LOC: LAB 08:02
PROVIDERS: PCP Nurse Practitioner Family; Visit Provider Nurse Practitioner Family
DX: Z00.00 Encounter for general adult medical examination without abnormal findings (principal); Z12.5 Encounter for screening for malignant neoplasm of prostate
CPT/HCPCS: 36415; 80053; 80061; 85025; G0103

== ENCOUNTER 2025-05-22 11:20 | Outpatient (OUT) | payer OTHER, SELFPAY ==
--- OUTSIDE RECORDS SUMMARY | 2025-05-22 11:25 | XMS_ITS | CCD ---
Author Organization [facility] Care Team Providers Care Astronomy Teacher Name Role Phone HOUSE, DR MURPHY Attending Unavailable HOUSE, DR MURPHY Consulting Unavailable HOUSE, DR MURPHY Primary Care Unavailable HOUSE, DR MURPHY Admitting Unavailable Mendy Benitez Unavailable Mendy Benitez APRN Primary Care Provider Mendy Benitez APRN Attending Provider [phone] Medications Current Medications Medication Drug Class(es) Dates Sig (Normalized) Sig (Original) atorvastatin 10 mg oral tablet (3 sources) HMG-CoA Reductase Inhibitor Start: 05-24-2024 End: 05-17-2025 take 1 tablet by mouth once daily in the evening Atorvastatin 10 mg tablet Active 10 MG PO Every evening May 17, 2025 8:49am Complies with drug therapy fluticasone propionate 0.05 mg/actuat metered dose nasal spray (1 source) Corticosteroid Start: 07-28-2024 take 1 spray(s) nasal route twice daily Fluticasone Propionate (Flonase Allergy Relief) 50 mcg/actuation spray,suspension Active 1 SPRAY INTRANASAL Twice daily July 28, 2024 1:00am administer into each nostril Complies with drug therapy Completed/Discontinued Medications Medication Drug Class(es) Dates Sig (Normalized) Sig (Original) amoxicillin 875 mg / clavulanate 125 mg oral tablet (1 source) Penicillin-class Antibacterial Start: End: 5 take 1 tablet by mouth twice daily Amoxicillin-Pot Clavulanate 875-125 mg tablet Discontinued 1 TAB PO Twice daily 22 05July 28, 2024 1:00am May 17, 2025 8:34am methylPREDNISolone 4 mg oral tablet (1 source) Corticosteroid Start: 4 End: 5 take 1 tablet by mouth once Methylprednisolone (Medrol (Benjamin)) 4 mg tablets,dose pack Discontinued 0 PO per package directions July 28, 2024 1:00am May 17, 2025 8:39am PO PER PKG DIR valACYclovir 1000 mg oral tablet (2 sources) Herpesvirus Nucleoside Analog DNA Polymerase Inhibitor, Herpes Simplex Virus Nucleoside Analog DNA Polymerase Inhibitor, Herpes Zoster Virus Nucleoside Analog DNA Polymerase Inhibitor Start: End: Valacyclovir 1 gram tablet Discontinued 2000 MG PO Every 12 hours 4 1 September 29, 2024 4:17pm May 17, 2025 8:39am Problems Active Problems Problem Classification Problem Date Documented Da te Episodic/Chronic Asthma (3 sources) Asthma; Translations: [Unspecified asthma, uncomplicated] 05-16-2024 Chronic Disorders of lipid metabolism (2 sources) Hyperlipidemia; Translations: [Hyperlipidemia, unspecified] 05-24-2024 Chronic Other nutritional; endocrine; and metabolic disorders (2 sources) Body mass index 30+ - obesity; Translations: [Body mass index (BMI) 31.0-31.9, adult] 05-16-2024 Chronic Other screening for suspected conditions (not mental disorders or infectious disease) (7 sources) Encounter for screening for lipoid disorders; Translations: [Encounter for screening for diseases of the blood and blood-forming organs and certain disorders involving the immune mechanism] Episodic Other upper respiratory infections (1 source) Maxillary sinusitis; Translations: [Chronic maxillary sinusitis] 05-17-2025 Chronic Otitis media and related conditions (1 source) Dysfunction of eustachian tube; Translations: [Unspecified Eustachian tube disorder, unspecified ear] 05-17-2025 Episodic Phlebitis; thrombophlebitis and thromboembolism (1 source) Personal history of other venous thrombosis and embolism Episodic Viral infection (1 source) Herpes labialis; Translations: [Herpesviral vesicular dermatitis] 09-20-2024 Episodic Past or Other Problems Problem Classification Problem Date Documented Da te Episodic/Chronic Unclassified (2 sources) Acute cough R05.1 Results Test Name Value Interpretation Reference Range Facil ity CBC AUTO DIFFon 05-23-2022 BASO # 0.0 103/ul Normal 0.0-0.1 [facility] Comment on above: Performed By: #### C #### [facility] [address] [address] [address] Shantelle Nicolas Basophils/100 WBC (Bld) 0.7 % Normal 0.2-2.0 [facility] Comment on above: Performed By: #### C BC #### [facility] [address] [address] [address] Shantelle Nicolas EO # 0.1 103/ul Normal 0.0-0.7 [facility] Comment on above: Performed By: #### C BC #### [facility] [address] [address] [address] Shantelle Nicolas Eosinophils/100 WBC (Bld) 3.3 % Normal 0.9-7.0 [facility] Comment on above: Performed By: #### C BC #### [facility] [address] [place] [address] Dr. Shantelle Nicolas Erythrocyte distribution width (RBC) [Ratio] 12.7 % Normal 11.0-15.0 [facility] Comment on above: Performed By: #### C BC #### [facility] [address] [place] [address] Dr. Shantelle Nicolas Hematocrit (Bld) [Volume fraction] 43.4 % Normal 42.0-54.0 [facility] Comment on above: Performed By: #### C BC #### [facility] [address] [place] [address] Dr. Shantelle Nicolas Hemoglobin (Bld) [Mass/Vol] 14.3 g/dL Normal 14.0-18.0 [facility] Comment on above: Performed By: #### C BC #### [facility] [address] [place] [address] Dr. Shantelle Nicolas IG # 0.01 10e3/ul Normal 0.00-0.03 [facility] Comment on above: Performed By: #### C BC #### [facility] [address] [place] [address] Dr. Shantelle Nicolas IG % 0.2 % Normal 0.0-0.5 [facility] Comment on above: Performed By: #### C BC #### [facility] [address] [place] [address] Dr. Shantelle Nicolas LYMPH # 1.5 103/ul Normal 1.2-3.8 [facility] Comment on above: Performed By: #### C BC #### [facility] [address] [place] [address] Dr. Shantelle Nicolas Lymphocytes/100 WBC (Bld) 33.7 % Normal 20.5-60.0 [facility] Comment on above: Performed By: #### C BC #### [facility] [address] [place] [address] Dr. Shantelle Nicolas MANUAL DIFF REQ NO Normal [facility] Comment on above: Performed By: #### C BC #### [facility] [address] [place] [address] Dr. Shantelle Nicolas MCH (RBC) [Entitic mass] 28.0 pg Normal 25.9-34.0 [facility] Comment on above: Performed By: #### C BC #### [facility] [address] [place] [address] Dr. Shantelle Nicolas MCHC (RBC) [Mass/Vol] 32.9 g/dL Normal 29.9-35.2 [facility] Comment on above: Performed By: #### C BC #### [facility] [address] [place] [address] Dr. Shantelle Nicolas MCV (RBC) [Entitic vol] 85.1 fL Normal 80.0-94.0 [facility] Comment on above: Performed By: #### C BC #### [facility] [address] [place] [address] Dr. Shantelle Nicolas MONO # 0.5 103/ul Normal 0.3-0.8 [facility] Comment on above: Performed By: #### C BC #### [facility] [address] [place] [address] Dr. Shantelle Nicolas Monocytes/100 WBC (Bld) 10.9 % Normal 1.7-12.0 [facility] Comment on above: Performed By: #### C BC #### [facility] [address] [place] [address] Dr. Shantelle Nicolas NEUT # 2.2 103/ul Normal 1.4-6.5 [facility] Comment on above: Performed By: #### C BC #### [facility] [address] [place] [address] Dr. Shantelle Nicolas Neutrophils/100 WBC (Bld) 51.2 % Normal 43.0-75.0 [facility] Comment on above: Performed By: #### C BC #### [facility] [address] [place] [address] Dr. Shantelle Nicolas Platelet mean volume (Bld) [Entitic vol] 8.8 fL Critically low 9.5-13.5 [facility] Comment on above: Performed By: #### C BC #### [facility] [address] [place] [address] Dr. Shantelle Nicolas PLT 222 103/ul Normal 150-450 [facility] Comment on above: Performed By: #### C BC #### [facility] [address] [place] [address] Dr. Shantelle Nicolas RBC 5.10 106/ul Normal 4.70-6.10 [facility] Comment on above: Performed By: #### C BC #### [facility] [address] [place] [address] Dr. Shantelle Nicolas WBC 4.3 103/ul Normal 4.0-11.0 [facility] Comment on above: Performed By: #### C BC #### [facility] [address] [place] [address] Dr. Shantelle Nicolas LIPID PROFILEon 05-23-2022 CHOL-HDL RATIO NORM SEE BELOW Normal [facility] Comment on above: Result Comment: 3.3 - 4.4 LOW RISK 4.4 - 7.1 AVERAGE RISK 7.1 - 11.0 MODERATE RISK >11.0 HIGH RISK Performed By: #### L IPID, CMP #### [facility] [address] [place] [address] Dr. Shantelle Nicolas Cholesterol [Mass/Vol] 224 mg/dL Critically high <=200 [facility] Comment on above: Performed By: #### L IPID, CMP #### [facility] [address] [address] [address] Shantelle Nicolas Cholesterol in HDL [Mass/Vol] 42 mg/dL Normal 40-60 [facility] Comment on above: Performed By: #### L IPID, CMP #### [facility] [address] [address] [address] Shantelle Nicolas Cholesterol in LDL [Mass/Vol] 149.0 mg/dL Normal [facility] Comment on above: Performed By: #### L IPID, CMP #### [facility] [address] [address] [address] Shantelle Nicolas Cholesterol.total/C holesterol in HDL [Mass ratio] 5.3 {ratio} Normal [facility] Comment on above: Performed By: #### L IPID, CMP #### [facility] [address] [place] [address] Dr. Shantelle Nicolas HDL NORMAL > or = 60 mg/dl - LO W CARDIOVASCULAR RISK <40 mg/dl - HIGH CARDIOVASCULAR RISK Normal [facility] Comment on above: Performed By: #### L IPID, CMP #### [facility] [address] [address] [address] Shantelle Nicolas LDL CALC NORMAL SEE BELOW Normal [facility] Comment on above: Result Comment: <100 mg/dl OPTIMAL 100 - 129 mg/dl NEAR OR ABOVE OPTIMAL 130 - 159 mg/dl BORDERLINE HIGH 160 - 189 mg/dl HIGH >190 mg/dl VERY HIGH Performed By: #### L IPID, CMP #### [facility] [address] [address] [address] Shantelle Nicolas Triglyceride [Mass/Vol] 165 mg/dL Critically high <=150 [facility] Comment on above: Performed By: #### L IPID, CMP #### [facility] [address] [address] [address] Shantelle Nicolas VLDL CALC 33.0 mg/dL Normal [facility] Comment on above: Performed By: #### L IPID, CMP #### [facility] [address] [address] [address] Shantelle Nicolas PROF 14(COMP METB)on 022 Albumin [Mass/Vol] 4.2 g/dL Normal 3.4-5.0 [facility] Comment on above: Performed By: #### L IPID, CMP #### [facility] [address] [address] [address] Shantelle Nicolas Albumin/Globulin [Mass ratio] 1.2 {ratio} Normal [facility] Comment on above: Performed By: #### L IPID, CMP #### [facility] [address] [address] [address] Shantelle Nicolas ALP [Catalytic activity/Vol] 97 U/L Normal 46-116 [facility] Comment on above: Performed By: #### L IPID, CMP #### [facility] [address] [address] [address] Shantelle Nicolas ALT [Catalytic activity/Vol] 34 U/L Normal 16-63 [facility] Comment on above: Performed By: #### L IPID, CMP #### [facility] [address] [address] [address] Shantelle Nicolas Anion gap [Moles/Vol] 10.6 mmol/L Normal [facility] Comment on above: Performed By: #### L IPID, CMP #### [facility] [address] [address] [address] Shantelle Nicolas AST [Catalytic activity/Vol] 16 U/L Normal 15-37 [facility] Comment on above: Performed By: #### L IPID, CMP #### [facility] [address] [address] [address] Shantelle Nicolas Bilirubin [Mass/Vol] 0.9 mg/dL Normal 0.2-1.0 [facility] Comment on above: Performed By: #### L IPID, CMP #### [facility] [address] [address] [address] Shantelle Nicolas Calcium [Mass/Vol] 9.2 mg/dL Normal 8.5-10.1 [facility] Comment on above: Performed By: #### L IPID, CMP #### [facility] [address] [address] [address] Shantelle Nicolas Chloride [Moles/Vol] 102 mmol/L Normal 98-107 [facility] Comment on above: Performed By: #### L IPID, CMP #### [facility] [address] [place] [address] Dr. Shantelle Nicolas CO2 [Moles/Vol] 30.4 mmol/L Normal 21.0-32.0 [facility] Comment on above: Performed By: #### L IPID, CMP #### [facility] [address] [place] [address] Dr. Shantelle Nicolas Creatinine [Mass/Vol] 1.17 mg/dL Normal 0.70-1.30 [facility] Comment on above: Performed By: #### L IPID, CMP #### [facility] [address] [place] [address] Dr. Shantelle Nicolas EGFR-AF RWANDAN >60 Normal >=60 [facility] Comment on above: Performed By: #### L IPID, CMP #### [facility] [address] [place] [address] Dr. Shantelle Nicolas EGFR-NON AF RWANDAN >60 Normal >=60 [facility] Comment on above: Performed By: #### L IPID, CMP #### [facility] [address] [place] [address] Dr. Shantelle Nicolas Globulin (S) [Mass/Vol] 3.5 g/dL Normal [facility] Comment on above: Performed By: #### L IPID, CMP #### [facility] [address] [place] [address] Dr. Shantelle Nicolas Glucose [Mass/Vol] 93 mg/dL Normal 74-106 [facility] Comment on above: Performed By: #### L IPID, CMP #### [facility] [address] [place] [address] Dr. Shantelle Nicolas Potassium [Moles/Vol] 4.0 mmol/L Normal 3.5-5.1 [facility] Comment on above: Performed By: #### L IPID, CMP #### [facility] [address] [address] [address] Shantelle Nicolas Protein [Mass/Vol] 7.7 g/dL Normal 6.4-8.2 [facility] Comment on above: Performed By: #### L IPID, CMP #### [facility] [address] [address] [address] Shantelle Nicolas Sodium [Moles/Vol] 139 mmol/L Normal 136-145 [facility] Comment on above: Performed By: #### L IPID, CMP #### [facility] [address] [address] [address] Shantelle Nicolas Urea nitrogen [Mass/Vol] 12.0 mg/dL Normal 7.0-18.0 [facility] Comment on above: Performed By: #### L IPID, CMP #### [facility] [address] [address] [address] Shantelle Nicolas Urea nitrogen/Creatinine [Mass ratio] 10.3 mg/mg Normal [facility] Comment on above: Performed By: #### L IPID, CMP #### [facility] [address] [address] [address] Shantelle Nicolas Vital Signs Date Time Vital Sign Value Performing Clinician Facility 05-17-2025 08:36-0400 Body height 175.26 cm Mendy Benitez APRN Work Phone: [facility] 05-17-2025 08:36-0400 Body mass index (BMI) [Ratio] 31.3 kg/m2 Mendy Benitez APRN Work Phone: [facility] 05-17-2025 08:36-0400 Body temperature 97.6 [degF] Mendy Benitez APRN Work Phone: [facility] 05-17-2025 08:36-0400 Body weight 96.16 kg Mendy Benitez APRN Work Phone: [facility] 05-17-2025 08:36-0400 Diastolic blood pressure 70 mm[Hg] Mendy Benitez APRN Work Phone: [facility] 05-17-2025 08:36-0400 Heart rate 66 /min Mendy Emmanuel RASCHEL KNITTING MACHINE OPERATOR Work Phone: [facility] 05-17-2025 08:36-0400 SaO2% (BldA) [Mass fraction] 98 % Mendy Emmanuel RASCHEL KNITTING MACHINE OPERATOR Work Phone: [facility] 05-17-2025 08:36-0400 Systolic blood pressure 118 mm[Hg] Mendy Emmanuel RASCHEL KNITTING MACHINE OPERATOR Work Phone: [facility] 05-16-2024 08:32-0400 Body height 175.26 cm [facility] 05-16-2024 08:32-0400 Body mass index (BMI) [Ratio] 31.8 kg/m2 [facility] 05-16-2024 08:32-0400 Body temperature 97.4 [degF] [facility] 05-16-2024 08:32-0400 Body weight 97.63 kg [facility] 05-16-2024 08:32-0400 Diastolic blood pressure 88 mm[Hg] [facility] 05-16-2024 08:32-0400 Heart rate 76 /min [facility] 05-16-2024 08:32-0400 SaO2% (BldA) [Mass fraction] 96 % [facility] 05-16-2024 08:32-0400 Systolic blood pressure 118 mm[Hg] [facility] 06-11-2023 08:00-0500 Body height 175.26 cm Mendy Benitez Other [employer] [facility] [employer] Other 06-11-2023 08:00-0500 Body mass index (BMI) [Ratio] 31.01 kg/m2 Mendy Benitez Other [employer] Other 06-11-2023 08:00-0500 Body weight 95.26 kg Mendy Benitez Other [employer] Other 06-11-2023 08:00-0500 Diastolic blood pressure 74 mm[Hg] Mendy Emmanuel Other [employer] Other 06-11-2023 08:00-0500 Systolic blood pressure 112 mm[Hg] Mendy Emmanuel Other [employer] Other 03-06-2023 08:00-0400 Body height 175.26 cm Mendy Emmanuel Other [employer] Other 03-06-2023 08:00-0400 Body mass index (BMI) [Ratio] 31.16 kg/m2 Mendy Emmanuel Other [employer] Other 03-06-2023 08:00-0400 Body weight 95.71 kg Mendy Emmanuel Other [employer] Other 03-06-2023 08:00-0400 Diastolic blood pressure 70 mm[Hg] Mendy Emmanuel Other [employer] Other 03-06-2023 08:00-0400 Systolic blood pressure 108 mm[Hg] Mendy Benitez Other [employer] Other Encounters Encounter Date Encounter Type Care Provider Facility Start: 05-17-2025 End: 05-17-2025 ambulatory Mendy Benitez APRN Work Phone: [facility] Work Phone: Start: 05-17-2025 End: 05-17-2025 Patient encounter procedure Mendy Benitez APRN [facility] Work Phone: Start: 05-17-2025 End: 05-17-2025 Patient encounter status Mendy Hutsondarren RASCHEL KNITTING MACHINE OPERATOR REVENUE AGENT [facility] Start: 05-16-2024 Patient encounter status [facility] Start: 05-16-2024 End: 05-16-2024 ambulatory [facility] Work Phone: Start: 05-16-2024 End: 05-16-2024 Encounter for general adult medical examination without abnormal findings [facility] Start: 05-16-2024 End: 05-16-2024 Patient encounter procedure [facility] Work Phone: Start: 07-08-2023 (Virtual OD) On-Gina nd Virtual Visit [facility] Mendy Benitez [facility] Start: 07-08-2023 End: 07-08-2023 ambulatory Mendy Benitez Other [employer] Other Start: 06-16-2023 End: 06-16-2023 ambulatory Mendy Benitez Other [employer] Other Start: 06-16-2023 Telephone encounter Mendy Kraig modi [facility] Start: 06-11-2023 End: 06-11-2023 ambulatory Mendy Benitez Other [employer] Other Start: 06-11-2023 Encounter for genera l adult medical examination without abnormal findings Mendy Benitez [facility] Start: 06-11-2023 Periodic preventive med est patient 40-64yrs Mendy Benitez [facility] Start: 03-06-2023 End: 03-06-2023 ambulatory Mendy Benitez Other [employer] Other Start: 03-06-2023 Office outpatient ne w 20 minutes Mendy Benitez [facility] Start: 10-26-2022 Encounter for genera l adult medical examination without abnormal findings DR KATHERINE VELA [facility] Start: 05-23-2022 End: 05-24-[address] KATHERINE VELA Facility:[facility] Start: 05-23-2022 End: 05-24-2022 Encounter for general adult medical examination without abnormal findings DR KATHERINE VELA Facility:[facility] Procedures Date Procedure Procedure Detail Performing Clinician Start: 05-23-[address] REECE VELA Comment on above: Performed By: #### P SAD #### [facility] [address] [address] [address] Shantelle Nicolas Plan of Treatment Date Care Activity Detail Author Comprehensive metabo lic 1999 panel - Serum or Plasma [facility] enter Comprehensive metabo lic 1999 panel - Serum or Plasma [facility] enter [facility] Immunizations Immunization Date Immunization Notes Care Provider Fa cility 08-03-2018 tetanus toxoid, redu sridevi diphtheria toxoid, and acellular pertussis vaccine, adsorbed [facility] Payers Date Payer Category Payer Unknown [id number] 1960 Unknown [id number] Self-pay Self Pay [id number] Unknown [id number] Unknown [employer] [id number] Social History Date Type Detail Facility Sex Assigned At [facility] [facility] Other Start: 05-16-2024 Tobacco smoking stat [facility] Never smoked tobacco (finding) [facility] Start: 1970 Sex Assigned At Male F [facility] Sex Male (finding) [facility] Evaluation note 07-08-2023 Note Date & Type [...] verbalizes understanding and agrees to treatment plan. [facility] Other Evaluation note 07-08-2023 Note Date & [...] was seen per telephonic virtual visit through [employer] and my location (provider) is in the office setting. The specifics of telephonic visit were discussed with patient. This call is considered a telephonic visit, which is to help assess current healthcare needs and to determine the appropriate care patient may require. This visit is a billable service through patient insurance Locally. Patient is in agreement to have their insurance billed for this telephonic visit and consents to telephonic visit. The staff involved in visit was myself, Mendy Benitez DNP, RASCHEL KNITTING MACHINE OPERATOR, REVENUE AGENT (provider). Time spent with patient for the telephonic visit was approximately 10 minutes. [facility] Other Evaluation note 06-11-2023 Note Date & [...] Screening for metabolic disorder (ICD-10 - Z13.228) [facility] Other Evaluation note 03-06-2023 Note Date & Type Note Facility 03-06-2023 Evaluation note Encounter Date Diagnosis Assessment Notes Mar, History of blood clots (ICD-10 - Z86.718) right lower extremity Reports a history of blood clot due to traumatic injury of right leg. Denies any edema, calf pain. [facility] Other Evaluation note Note Date & Type Note Facility Evaluation note No Information [facility] Other Evaluation note Note Date & Type Note Facility Evaluation note Diagnosis Onset Date Screening for prostate cancer acute Wellness examination acute [facility] Work Phone: Evaluation note Note Date & Type Note Facility Evaluation note Diagnosis Onset Date Resolution Asthma acute May 17, 2025 8:28am BMI 31.0-31.9,adult acute Octob er 2024 8:28am Hyperlipidemia acute May 172024 8:28am Screening for prostate cancer acute May 17 8:28am Wellness examination acute Octo peggy 2024 8:28am [facility] Work Phone: History general Narrative - Reported Note Date & Type Note Facility History general Narrative - Reported Type Medical History Asthma Medical History DVT- 2018 Surgical History PE tubes [facility] Other Reason for referral (narrative) Note Date & Type Note Facility Reason for referral (narrative) No reason for referral information available [facility] Work Phone: Summary Purpose Family History Relationship Condition Age at Onset Recorded Date/T stu father Heart disease Unknown Advance Directives Advance Directive Response Recorded Date/ Time Advance Directives No August 03, 2018 5:40am Chief Complaint and Reason for Visit Chief Complaint biometric screening Reason for Visit Screening for prosta te cancer Wellness examination Chief Complaint Admit Date Wellness May 17, 2025 8 :28am Reason for Visit Admit Date Asthma May 17, 2025 8 :28am BMI 31.0-31.9,adult May 17, 2025 8 :28am Hyperlipidemia May 17, 2025 8 :28am Screening for prostate cancer May 172024 8:28am Wellness examination May 17, 2025 8:28am Additional Source Comments (unrecognized sect ion and content) No Status Records Found INFORMATION SOURCE (unrecogn ized section and content) DATE CREATED AUTHOR 05/29/2022 [facility] REASON FOR VISIT (unrecogniz ed section and content) EstablishBiometric Screening lab resultsCosauk [facility], Congestion- [phone], Congestion [phone] Care Teams (unrecognized sec tion and content) Team Status: Active Member Role Status Dates Mendy Benitez APRN QUALITY SUPERVISOR-C Primary Care Provider Active Lynn Mccormick MD Specialist Active Team Status: Inactive Member Role Status Dates Mendy Benitez APRN NP-Manuela Primary Care Provider, Attending Provider Active Start: May 16, 2024 End: May 16, 2024 Team Status: Inactive Member Role Status Dates Mendy Benitez APRN NP-Manuela Primary Care Provider Active Start: May End: May 17, 2025 CARTER Rosas Attending Provider Active Start: May 17, 2025 End: May 17, 2025 Goals (unrecognized section and content) Goals may [...] BE BASED ON THE PRIMARY CLINICAL RECORDS. [facility]. provides no warranty or guarantee of the accuracy or completeness of information in this document.
[2025-05-22 12:07] LABS: Alanine Aminotransferase 44 U/L (16-63); Albumin Globulin Ratio 1.1; Albumin Level 4.0 g/dL (3.4-5.0); Alkaline Phosphatase 103 U/L (46-116); Anion Gap 13.5; Aspartate Amino Transferase 16 U/L (15-37); Blood Urea Nitrogen 12.0 mg/dL (7.0-18.0); Calcium 9.2 mg/dL (8.5-10.1); Carbon Dioxide 26.5 mmol/L (21.0-32.0); Chloride 103 mmol/L (98-107); Cholesterol 166 mg/dL (<=200); Estimated GFR (African America >60 (>=60 mL/min/1.73m^2); Estimated GFR (Non-African Ame >60 (>=60 mL/min/1.73m^2); Globulin 3.8 g/dL; Glucose 93 mg/dL (74-106); HDL Cholesterol 44 mg/dL (40-60); Potassium 4.0 mmol/L (3.5-5.1); Sodium 139 mmol/L (136-145); Total Protein 7.8 g/dL (6.4-8.2); Triglycerides 183 mg/dL (<=150); VLDL CHOLESTEROL 36.6 mg/dL
[2025-05-22 12:10] LABS: Hematocrit 43.0 % (42.0-54.0); Hemoglobin 14.5 g/dL (14.0-18.0); Immature Granulocytes Abs Auto 0.01 10^3/uL (0.00-0.03); Immature Granulocytes Pct Auto 0.2 % (0.0-0.5); Lymphocytes Absolute Auto 1.7 10^3/uL (1.2-3.8); Mean Corpuscular HGB Conc 33.7 g/dL (29.9-35.2); Mean Corpuscular Hemoglobin 28.3 pg (25.9-34.0); Mean Corpuscular Volume 84.0 fL (80.0-94.0); Platelet Count 176 10^3/uL (150-450); Red Blood Count 5.12 10^6/uL (4.70-6.10); White Blood Count 5.1 10^3/uL (4.0-11.0)
== END 2025-05-22 11:21 | disposition home or self-care (01) ==
LOC: LAB 11:22
PROVIDERS: PCP Nurse Practitioner Family; Visit Provider Nurse Practitioner Family
DX: Z00.00 Encounter for general adult medical examination without abnormal findings (principal); E78.5 Hyperlipidemia, unspecified; Z12.5 Encounter for screening for malignant neoplasm of prostate
CPT/HCPCS: 36415; 80053; 80061; 85025; G0103

== ENCOUNTER 2025-08-02 11:13 | Outpatient (OUT) | payer OTHER, SELFPAY ==
--- OUTSIDE RECORDS SUMMARY | 2025-08-02 06:09 | XMS_ITS | Continuity of Care Document ---
Author Organization [facility] Address [address] [place] [address] Phone Care Team Providers Care Apparel Manufacture Instructor Name Role Phone Mendy Benitez APRN Primary Care Provider Mendy Benitez APRN Attending Provider Care Teams Patient Care Team Team Status: Active Member Role/Relationship Status Dates Mendy Benitez APRN SPIRAL SPRING WINDER-C Primary Care Provider Active ELISE WupecialistActiveMendy Benitez APRN SPIRAL [place] [place]ER-CPrimary Care ProviderActive Visit Care Team Team Status: Inactive Member Role/Relationship Status Dates Mendy Benitez APRN SPIRAL [employer]-C Primary Care Provider Active Start: May End: May 17, 2025Mendy Benitez APRN SPIRAL [place]ING [place]ER-CAttending ProviderActive Start: May 17, 2025 End: May 17, 2025 Patient Care Team Team Status: Active Member Role/Relationship Status Dates Mendy Benitez APRN SPIRAL [employer]ER-C Primary Care Provider Active Start: May Mendy Benitez APRN SPIRAL [employer]ING [employer]ER-CAttending ProviderActiveStart: May 22, 2025 Patient Care Team Team Status: Inactive Member Role/Relationship Status Dates Mendy Benitez APRN SPIRAL [employer]-C Primary Care Provider Active Start: August 022024 End: August 02, 2025Mendy Benitez APRN SPIR[employer]ING [employer]-CAttending ProviderActive Start: August 02, 2025 End: August 02, 2025 Chief Complaint and Reason for Visit Chief Complaint Admit Date Wellness May 17, 2025 8 :28am Back Pain (4 days) August 02, 2025 10:19am Reason for Visit Admit Date Asthma May 17, 2025 8 :28am BMI 31.0-31.9,adult May 17, 2025 8 :28am Hyperlipidemia May 17, 2025 8 :28am Screening for prostate cancer May 172024 8:28am Wellness examination May 17, 2025 8:28am Thoracic back pain August 02, 2025 10:19am Allergies, Adverse Reactions, Alerts Allergen Type Severity Reaction Last Updated Verified Status No Known Allergies Allergy Unknown August 02, 2025 10:24amYesActive Social History Smoking Status Status Start Date End Date Date of Observa tion Never smoked tobacco (finding) May 16, 2024 8:36am Observation Status Observation Response Date of Response Legal Sex Male (finding) [facility] Family History Relationship Condition Age at Onset Recorded Date/T stu father Heart disease Unknown Problems Active Problems Problem Diagnosis/Recorded Date Onset Date Stat Screening for prostate cancer May 16, 2024 7:52a m Unknown Active Cold sore September 20, 2024 8:50am Unknown A ctive Wellness examination May 16, 2024 7:47am Unknown Active Hyperlipidemia May 24, 2024 6:55am Unknown Active BMI 31.0-31.9,adult May 16, 2024 8:21am Unknown Active Thoracic back pain August 02, 2025 10:48am Unknown Active Asthma May 16, 2024 7:31am Unknown Ac tive Inactive/Resolved Problems Problem Diagnosis/Recorded Date Onset Date Stat Eustachian tube dysfunction July 28, 2024 10:31a m Unknown Resolved Maxillary sinusitis July 28, 2024 10:16am Unknow n Resolved Medications Medication Status Dose Units Route Directions Qty Days Refills S tart Date Stop Date End Date Reason(s) Instructions Adherence Atorvastatin 10 mg tablet Discontinued 10 MG PO E very evening 90 1October 2023 11:00pmJuly 2024 7:42amHyperlipidemia Hyperlipidemia, unspecifiedValacyclovir 1 gram fmstnuBbturnkpolng7530KLQSQzrrv 12 ffhpk903Xnfhoqmx 2024 12:00amFebruary 2024 3:17pmHerpes labialis Herpesviral vesicular dermatitisValacyclovir 1 gram mfdyaqSpwibkudutyi5467XHGV Every 12 ucdfb857Vlbyjtey 2024 3:17pmOctober 2024 7:39amHerpes labialis Herpesviral vesicular dermatitisAtorvastatin 10 mg xpoefzScovsbtazrzj58TOSFQcbci wtyudqp676Vpqu 2024 7:42amOctober 2024 7:49amHyperlipidemia Hyperlipidemia, unspecifiedValacyclovir 1 gram sgtdilTgnpgbiwbual2261EFQCVjhyr 12 wcxcc190Hqfnrdml 2024 12:00amDecember 2024 10:28amHerpes labialis Herpesviral vesicular dermatitisFluticasone Propionate (Flonase Allergy Relief) 50 mcg/actuation spray,vkbdmoqbieOruprysmexwc0TTQNGKNSQRKBAQTWbnuc oofhh86340 July 28, 2024 12:00amDecember 2024 10:28amMaxillary sinusitis Chronic maxillary sinusitisadminister into each nostrilAmoxicillin-Pot Clavulanate 875-125 mg yerqhuWwqernvyrsmk4MKTYGGezet ybgot04644Yomtyxhj2023 12:00amOctober 2024 7:34amMaxillary sinusitis Chronic maxillary sinusitisMethylprednisolone (Medrol (Benjamin)) 4 mg tablets,dose ybmqRpfcjmbqrhqv1EXyyh package lmmxnluxnw894Bwvnpihx 26th, 2024 12:00amOctober 2024 7:39amMaxillary sinusitis Chronic maxillary sinusitisPO PER PKG DIRAtorvastatin 10 mg wdkdgdInjlbv87SYMH Every jmazcuq438Rvtdlyi 2024 7:49amHyperlipidemia Hyperlipidemia, unspecifiedComplies with drug therapyMethylprednisolone (Medrol (Benjamin)) 4 mg tablets,dose akqpMgjtsl8PDrgk package yiiobxegfv343Rlnzzhsl 2024 12:00amThoracic back pain Pain in thoracic spinePO PER PKG DIRComplies with drug therapy Immunizations Immunization Event Date Not Given Reason Dose Number Office Professional Lot Number Reason(s) Given Vaccine Information Statement (VIS) Detail Administration Location Tetanus, Diphtheria, Pertussis (Tdap) [id number] Relevant Diagnostic Tests and/or Laboratory Data Laboratory Results Test Collection Date/Time Result Date/Time Result Interpretation Reference Range Result Comment Performing Site Cholesterol/HDL Ratio May 22, 2025 10:34am May 042024 10:34am 3.8 3.3 - 4.4 LOW RISK4.4 - 7.1 AVERAGE RISK7.1 - 11.0 MODERATE RISK>11.0 HIGH RISK Anion GapOct2024 10:34amO2024 10:34am13.5Basophils # (Auto)May 22, 2025 10:34amOct2024 10:34am0.0 10 3/uL0.0-0.1 Prostate Specific Antigen ScreenMay 22, 2025 10:34amOct2024 10:34am0.77 ng/mL<=4.00Cholesterol LevelOct2024 10:34amOct2024 10:99lx159 mg/dL<=200Albumin/Globulin RatioMay 22, 2025 10:34am May 22, 2025 10:34am1.1Basophils (%) (Auto)May 22, 2025 10:34am May 22, 2025 10:34am0.4 %0.2-2.0HDL CholesterolMay 22, 2025 10:34am May 22, 2025 10:34am44 mg/dL40-60> or =60 mg/dl - LOW CARDIOVASCULAR RISK<40 mg/dl - HIGH CARDIOVASCULAR RISKAlbuminMay 22, 2025 10:34amO2024 10:34am4.0 g/dL3.4-5.0Eosinophils # (Auto)May 22, 2025 10:34am May 22, 2025 10:34am0.2 10 3/uL0.0-0.7LDL Cholesterol, CalculatedMay 22, 2025 10:34amO2024 10:34am86.0 mg/dL<100 mg/dl MRNOHUP403-909 mg/dl NEAR OR ABOVE KSTMYIU725-048 mg/dl BORDERLINE RQQH749-699 mg/dl HIGH>190 mg/dl VERY HIGHAlkaline PhosphataseMay 22, 2025 10:34amOct2024 10:37bs214 U/G39-292Imagukssitr (%) (Auto)May 22, 2025 10:34amOctober 2024 10:34am3.4 %0.9-7.0Triglycerides LevelOctober 2024 10:34am May 22, 2025 10:12nh157 mg/dLAbove high normal<=150Alanine Aminotransferase (ALT/SGPT)May 22, 2025 10:34amOct2024 10:34am 44 U/F42-42TltorolcxfPmzolqt 20th, 2025 10:34amOct2024 10:34am43.0 % 42.0-54.0VLDL CholesterolOct2024 10:34amOct2024 10:34am 36.6 mg/dLAspartate Amino Transf (AST/SGOT)May 22, 2025 10:34amOct2024 10:34am16 U/M05-25CgtdnwrzxsFbmssge 2024 10:34amOctober 2024 10:34am14.5 g/dL14.0-18.0BUN/Creatinine RatioOctober 2024 10:34am May 22, 2025 10:34am11.3Immature Granulocyte # (Auto)May 22, 2025 10:34amOct2024 10:34am0.01 10 3/uL0.00-0.03Blood Urea NitrogenOctober 2024 10:34amOctober 2024 10:34am12.0 mg/dL7.0-18.0Immature Granulocyte % (Auto)May 22, 2025 10:34amOctober 2024 10:34am0.2 % 0.0-0.5Calcium LevelOctober 2024 10:34amOctober 2024 10:34am9.2 mg/dL8.5-10.1Lymphocytes # (Auto)May 22, 2025 10:34amOctober 2024 10:34am1.7 10 3/uL1.2-3.8Chloride LevelOctober 2024 10:34amOct2024 10:56px703 mmol/W24-131Ktgphgxotye (%) (Auto)May 22, 2025 10:34am May 22, 2025 10:34am33.3 %20.5-60.0Carbon Dioxide LevelOct2024 10:34amOct2024 10:34am26.5 mmol/L21.0-32.0Mean Corpuscular Hemoglobin May 22, 2025 10:34amOct2024 10:34am28.3 pg25.9-34.0Creatinine May 22, 2025 10:34amOct2024 10:34am1.06 mg/dL0.70-1.30Mean Corpuscular Hemoglobin ConcentMay 22, 2025 10:34amOct2024 10:34am33.7 g/dL29.9-35.2Estimated GFR ()May 22, 2025 10:34amOct2024 10:34am>60>=60 mL/min/1.73m 2Mean Corpuscular Volume May 22, 2025 10:34amOct2024 10:34am84.0 fL80.0-94.0Estimated GFR (Non- AmericanOct2024 10:34amOct2024 10:34am>60 >=60 mL/min/1.73m 2Monocytes # (Auto)May 22, 2025 10:34amOct2024 10:34am0.6 10 3/uL0.3-0.8GlobulinMay 22, 2025 10:34amOct2024 10:34am3.8 g/dLMonocytes (%) (Auto)May 22, 2025 10:34amOct2024 10:34am12.4 %Above high normal1.7-12.0Glucose LevelOct2024 10:34amOct2024 10:34am93 mg/dQ85-520Yrva Platelet VolumeOct2024 10:34amOct2024 10:34am9.4 fLBelow low normal9.5-13.5Potassium LevelOct2024 10:34amOct2024 10:34am4.0 mmol/L3.5-5.1 Neutrophils # (Auto)May 22, 2025 10:34amOctober 2024 10:34am2.6 10 3/uL1.4-6.5Sodium LevelOct2024 10:34amOctober 2024 10:33de508 mmol/E222-194Fxnzsagnuke (%) (Auto)May 22, 2025 10:34amOct2024 10:34am50.3 %43.0-75.0Total BilirubinOct2024 10:34amOctober 2024 10:34am1.0 mg/dL0.2-1.0Platelet CountOct2024 10:34amOct2024 10:81hl123 10 3/wV703-471Ecquz ProteinOct2024 10:34am May 22, 2025 10:34am7.8 g/dL6.4-8.2Red Blood CountOct2024 10:34amOct2024 10:34am5.12 10 6/uL4.70-6.10Red Cell Distribution WidthOct2024 10:34amOct2024 10:34am12.6 %11.0-15.0 Corrected White Blood CountOct2024 10:34amOct2024 10:34am 5.1 10 3/uL4.0-11.0 Vital Signs Vital Reading Result Reference Range Collection Date/Time Height 69 [in_i] May 17, 2025 7:77irUwlaon23.16 kgOct2024 7:36amBody Temperature 97.6 [degF]97.6-99.0Oct2024 7:36amHeart Rate66 /wzy37-439Zkcczyt 15th, 2025 7:36amOxygen saturation by Pulse ofnsqote14 %95-100Oct2024 7:36amBP Vclvpkst312 mm[Hg]100-140Oct2024 7:36amBP Cmoztofyl91 mm[Hg]60-100October 2024 7:36amBMI (Body Mass Index)31.3 kg/w8Fyashds2024 7:90dyShycbk51 [in_i]August 02, 2025 10:70ncHswuzu56.79 kg August 02, 2025 10:25amBody Brprqaqzhln25.1 [degF]97.6-99.0August 02, 2025 10:25amHeart Rate69 /glu21-862EgdbklrdAugust 02, 2025 10:25amOxygen saturation by Pulse %95-100August 02, 2025 10:25amBP Ollrmvat330 mm[Hg] 100-140August 02, 2025 10:25amBP Nchzxwbix49 mm[Hg]60-100August 02, 2025 10:25amBMI (Body Mass Index)32.5 kg/n3DvqveuacAugust 02, 2025 10:25am Advance Directives Advance Directive Response Recorded Date/ Time Advance Directives No August 03, 2018 4:40am Insurance Providers Guarantor Michael Simmons Address [address] [employer] [address]Hskrqnz Info.Home Phone: Payer Group Member ID Coverage Type Subscriber Relationship to Subscriber Effective Date Expiration Date [employer] Whirlpchristen Id: [id number] S Richie Id: [id number] [address] [employer] [address] Home Phone: Self Encounters Encounter Location(s) Arrival/Admit Date Discharge/Departure Date Discharge/Departure Disposition Provider(s) Departed Physician/ Provider Office Visit -[facility] May 17, 2025 8:28am May 17, 2025 8:56am Discharged to home care or self care (routine discharge) Mendy Benitez APRN CNP Non-patient / Non-visit -[facility] O ctober 2024 11:34am Mendy Benitez APRN CNPDeparted Physician/Provider [facility]amDe2024 11:07amDischarged to home care or self care (routine discharge)Mendy Benitez APRN CNP Recent Diagnosis Onset Date Admit Date Asthma Unknown May 17 8:28am BMI 31.0-31.9,adult Unknown May 8:28am Hyperlipidemia Unknown May 17 8:28am Screening for prostate cancer Unknown Oc tober 2024 8:28am Wellness examination Unknown May 8:28am Thoracic back pain Unknown July 10:19am Assessments Diagnosis Onset Date Resolution Status Admit Date Asthma acuteOctober 2024 8:28amBMI 31.0-31.9,adultacuteOctober 2024 8:28am HyperlipidemiaacuteOctober 2024 8:28amScreening for prostate canceracute May 17, 2025 8:28amWellness examinationacuteOctober 2024 8:28am Thoracic back painacuteDecember 2024 10:19am Plan of Treatment Author Mendy [facility]itez [facility]ored[facility] 7:56am Personalized health advice given for screenings discussed and provided. Advanced care [...] maintaining positive relationships with family and friends. Risks and benefits of PSA screening discussed with patient today. Patient wishes to get PSA screening done. PSA screening lab ordered today. Due for labs. Continue Atorvastatin Lipid panel reviewed with patient from 05/19/2024. Discussed importance of maintaining an LDL level at specified goal. Discussed associated risk factors of hyperlipidemia including stroke and heart attack. Treatment with medications discussed and we have agrees upon appropriate action of treatment and goals. Discussed dietary modifications, including decreasing red meat consumption, decreased alcohol consumption, avoiding fried foods, and cake and cookies, and sweets. Encouraged increasing fiber in diet and eat a diet rich in omega-3. Encouraged to exercise at least 150 minutes weekly. Barriers to plan of care have been addressed. Follow-up as directed. Patient given a copy of the plan of care. Patient is advised to work on healthy diet choices and appropriate servings, weight control, regular exercise as directed, reduced fat intake, and salt avoidance. Patient voiced understanding of this and agrees to this plan. Stable. Taking a daily Zyrtec. Prior to your visit today we reviewed your chart and outlined the testing and treatment needed for your care.We discussed the possible complications of Asthma, including increased risk for acute exacerbation and respiratory failure. Our goal is to keep your Asthma under control to avoid exacerbation and hospitalizations. maintain a healthy weight with a BMI less than 26. We are working together to achieve these goals with the following plan; healthier diet, increased activity and exercise, understanding your medications and your compliance, Future Tests Future scheduled test information is unavailable Pending Tests Test Name Ordered Date Scheduled Date Comprehensive Metabolic Panel May 17, 2025 7:44am XR thoracic spine 3V*August 02, 2025 10:52am Future Visits Future appointment information is unavailable Future Procedures Procedure Name Ordered Date Scheduled Date Complete Blood Count Auto Diff May 17 7:44am Lipid PanelOctober 2024 7:44amPSA Screen (Yearly Only)May 17, 2025 7:44amToradol 60 mg InjectionDecember 2024 10:19am Future Medications Future medication information is unavailable Patient Instructions Patient instructions are unavailable
--- OUTSIDE RECORDS SUMMARY | 2025-08-02 11:17 | XMS_ITS | Clinical Summary ---
Author Organization [facility] Address [facility] [id number] [address] [place] [address] Care Team Providers Care Mangle Roll Operator Name Role Phone Que Garrett DO Primary Care Provider [phone] Allergies No known active allergies Medications MedicationSigDispense QuantityRefillsLast FilledStart DateEnd DateStatus sodium hypochlorite (DAKIN'S 1/4 STRENGTH) 0.125 % solution external solution Indications:Traumatic open wound of right lower leg, subsequent encounterApply 1 application topically 2 (two) times a day. Wet to moist dressing to right posterior calf wound twice daily as directed 1 Bottle Active acyclovir (ZOVIRAX) 400 mg tablet Take 400 mg by mouth 3 (three) times a day as needed.Active rivaroxaban (XARELTO) 15 mg tablet Indications:History of DVT (deep vein thrombosis)Take 1 tablet (15 mg total) by mouth daily. 42 tablet 08/27/2018Active Active Problems ProblemNoted DateDiagnosed DateTraumatic open wound of right lower leg08/05/2018 Traumatic hematoma of right lower leg08/05/2018 Family History Medical HistoryRelationNameCommentsHeart diseaseFatherDiabetesMaternal GrandmotherCancerMotherRelationNameStatusCommentsFatherAliveMaternal Grandmother MotherAlive Social History Tobacco UseTypesPacks/DayYears UsedDateSmoking Tobacco: NeverSmokeless Tobacco: NeverAlcohol UseStandard Drinks/WeekCommentsYes0 (1 standard drink = 0.6 oz pure alcohol)casualChildcareAnswerDate LssrriksBkbrlufoxUbditof25/13/2019Employment AnswerDate XzsojpdpVhixmwdiuqBoueqfn22/13/2019Purpose - LifeAnswerDate Recorded Purpose and direction in jauaUlbuwaf75/11/2021ex and Gender InformationValue Date RecordedSex Assigned at BirthNot on fileLegal HjfBhdq8508/05/2018 8:57 AM EST Gender IdentityNot on fileSexual OrientationNot on file Last Filed Vital Signs Vital SignReadingTime TakenCommentsBlood Ouajdzvi868/8308/26/2018 10:51 AM EST Gvgio8538/24/2019 10:51 AM DLSJoqowssentw44.9 ??C (98.5 ??F)08/09/2018 12:02 PM ESTRespiratory Ogri474908/09/2018 12:02 PM ESTOxygen Jvylnooxfe68%08/26/2018 10:51 AM ESTInhaled Oxygen Concentration--Lspjuq28.8 kg (198 lb)08/26/2018 10:51 AM MEVOovcex224.3 cm (5' 9 )08/26/2018 10:51 AM ESTBody Mass Index29.24008/26/2018 10:51 AM EST Plan of Treatment Health MaintenanceDue DateLast DoneCommentsDepression Etiecegmk07/28/1982Tobacco Bhnzgldfo48/28/1982Adult BMI Qvyjlwkul99/28/1988DTaP,Tdap and Td Vaccines (1 - Tdap)1988Zoster (Shingles) Vaccine (1 of 2)2019Influenza Vaccine 04/03/2025 Medical Devices Not on file Insurance Care Teams Team MemberRelationshipSpecialtyStart DateEnd Date Que Garrett DO PCP - General08/05/18
--- OUTSIDE RECORDS SUMMARY | 2025-08-02 11:17 | XMS_ITS | Clinical Summary ---
Author Organization [facility] Address [address] [place] [address] Care Team Providers Care Acid Operator Name Role Phone Unavailable Primary Care Provider Unavailabl e Social History Tobacco UseTypesPacks/DayYears UsedDateSmoking Tobacco: Never AssessedSex and Gender InformationValueDate RecordedSex Assigned at BirthNot on fileLegal Sex Male10/15/2022 8:22 PM EDTGender IdentityNot on fileSexual OrientationNot on file Last Filed Vital Signs Vital SignReadingTime TakenCommentsBlood Raebfwkx109/7401 12:00 PM EST Pulse--Temperature--Respiratory Rate--Oxygen Saturation--Inhaled Oxygen Concentration--Htnaqn02.1 kg (216 lb 3.2 oz)2022 12:00 PM WCMCapibi743.3 cm (5' 9 )2022 12:00 PM ESTBody Mass Index31.9309/30/2022 12:00 PM EST Plan of Treatment Not on file
--- OUTSIDE RECORDS SUMMARY | 2025-08-02 11:17 | XMS_ITS | Clinical Summary ---
Author Organization [facility] Address [address], [address] [place] [address] Care Team Providers Care Breaker Up Name Role Phone House DO LorneQue Primary Care Provider + Allergies No known active allergies Medications MedicationSigDispense QuantityRefillsLast FilledStart DateEnd DateStatus ibuprofen (ADVIL;MOTRIN) 600 MG tablet Take 1 tablet by mouth every 6 hours as needed for Pain 60 tablet 08/03/2018Active Active Problems ProblemNoted DateDiagnosed DateForeign body of leg, right, initial encounter 08/03/2018Struck fence with fall Social History Tobacco UseTypesPacks/DayYears UsedDateSmoking Tobacco: NeverSmokeless Tobacco: NeverAlcohol UseStandard Drinks/WeekCommentsYes6 (1 standard drink = 0.6 oz pure alcohol)Sex and Gender InformationValueDate RecordedSex Assigned at BirthNot on fileLegal HmhGxrc7708/03/2018 5:11 AM ESTGender IdentityNot on fileSexual OrientationNot on file Last Filed Vital Signs Vital SignReadingTime TakenCommentsBlood Jdtwqnst129/8108/03/2018 9:03 AM EST Ezwdf04235/01/2019 9:03 AM BUUEpbrwpmvewo16.8 ??C (98.2 ??F)08/03/2018 9:03 AM ESTRespiratory Vknw903208/03/2018 9:03 AM ESTOxygen Nedfyhsjea450%08/03/2018 9:03 AM ESTInhaled Oxygen Concentration--Bwpwxh37 kg (213 lb 12.8 oz)08/03/2018 9:03 AM TGWOaikpk559.3 cm (5' 9 )08/03/2018 9:03 AM ESTBody Mass Index31.57008/03/2018 9:03 AM EST Plan of Treatment Not on file Insurance * Guarantor: Michael SimmonsAccount TypeRelation to PatientDate of BirthPhone Billing AddressPersonal/WbpgthChnn73/28/1971 [address] [place] [address] Advance Directives * Full Code (Latest Code Status on File) Date ActivatedDate InactivatedComments08/03/2018 8:11 AM08/03/2018 8:23 PM Care Teams Team MemberRelationshipSpecialtyStart DateEnd Date Que Garrett Sr., DO [address] [facility] [place] [address] PCP - GeneralFamily Medicine08/03/18
--- NOTE | 2025-08-02 11:25 | XR_ITS ---
[facility] [place] [id number] Patient Name: BARBARA SORTO MRN: [id number] date: 1970 Sex: M Assigned Patient Location: [facility] Current Patient Location: [facility] Accession/Order Number: [id number] Exam Date: 08/02/2025 11:20 Report Date: 08/02/2025 11:58 At the request of: RACHEAL DHILLON Procedure: XR thoracic spine 3V THORACIC SPINE -2 views: CLINICAL HISTORY: Back pain radiating to the left axilla and shoulder COMPARISON: None AP as well as upper and lower lateral views were obtained. There is no evidence of compression fracture or displacement. The pedicles are intact. There our tiny endplate spurs. There are no paraspinal soft tissue abnormalities. XR/XR thoracic spine 3V IMPRESSION: MINOR DEGENERATIVE CHANGE. NO ACUTE BONY FINDINGS. Impression dictated by: Louisa Garcia M.D. 08/02/2025 11:58 AM Dictation Location: [place] [address] Electronically authenticated by: [id number] Date: 08/02/2025 11:58
== END 2025-08-02 11:14 | disposition home or self-care (01) ==
LOC: RAD 11:14
PROVIDERS: PCP Nurse Practitioner Family; Visit Provider Nurse Practitioner Family
DX: M54.6 Pain in thoracic spine (principal)
CPT/HCPCS: 72072